=== PATIENT | male | born 1965 | race African-American/Black ===

== ENCOUNTER 2018-07-07 23:07 | Inpatient (IN) | payer BC ==
[~2018-07-07] VITALS: Ht 177.8 cm; Wt 132.0 kg
[~2018-07-07 23:07] MED LIST: AMLO2.5T45 PO; CARV6.2548 PO; METF500T6 PO; OLME40TA12 PO
[2018-07-08 00:38] LABS: BASOPHILS % 0.5 % (0.0-2.0); EOSINOPHILS % 0.9 % (0.0-5.0); HEMATOCRIT. 36.1 % (42.0-52.0); HEMOGLOBIN. 11.9 g/dL (14.0-18.0); LYMPHOCYTES % 12.3 % (20.0-50.0); MEAN CORPUSCULAR HEMOGLOBIN 28.9 pg (28.0-32.0); MEAN CORPUSCULAR VOLUME 87.6 fL (80.0-94.0); MONOCYTES % 8.3 % (2.0-8.0); PLATELET 311 x1000/uL (130-400); RED BLOOD CELL COUNT 4.12 mill/uL (4.7-6.1); RED CELL DISTRIBUTION WIDTH 13.9 % (11.6-14.6)
[2018-07-08 00:45] LABS: INR 1.1; PARTIAL THROMBOPLASTIN TIME 30.6 sec (23.4-31.0); PROTHROMBIN TIME 10.7 sec (9.1-11.1)
[2018-07-08 00:51] LABS: CHLORIDE 105 mEq/L (98-107)
[2018-07-08] MEDS ORDERED: FUROSEMIDE 100MG/10ML VIAL IVP ONE (02:00)
[2018-07-08] MEDS ORDERED: ASPIRIN 325MG EC TABLET PO ONE (02:00)
[2018-07-08 05:04] LABS: CLARITY URINE CLEAR (CLEAR); COLOR URINE YELLOW (YELLOW); KETONES URINE NEGATIVE (NEGATIVE); LEUKOCYTE ESTERASE URINE NEGATIVE (NEGATIVE); NITRITE URINE NEGATIVE (NEGATIVE); OCCULT BLOOD URINE NEGATIVE (NEGATIVE); PROTEIN URINE TRACE (NEGATIVE); SPECIFIC GRAVITY URINE 1.016 (1.005-1.030)
[2018-07-08 05:30] VITALS: BP 155/89
[2018-07-08] MEDS ORDERED: FURO-152 PO (06:06)
[2018-07-08] MEDS ORDERED: DEXTROSE 50% WATER 50ML SYRINGE IV PRN (06:30)
[2018-07-08] MEDS ORDERED: ACETAMINOPHEN 650MG/20.3ML UDC PO PRN (06:30)
[2018-07-08] MEDS ORDERED: MORPHINE SULFATE 4 MG/ML CPJ (NOT FOR IM USE) IV PRN (06:30)
[2018-07-08] MEDS: BLOOD SUGAR DIAGNOSTIC STRIP TEST SCH ×4 (06:45→21:16)
[2018-07-08 08:00] VITALS: BP 150/74
[2018-07-08] MEDS ORDERED: ENOXAPARIN 40MG/0.4ML SYR SUBCUT SCH (09:00)
[2018-07-08 09:37] LABS: BASOPHILS % 0.6 % (0.0-2.0); EOSINOPHILS % 1.3 % (0.0-5.0); HEMATOCRIT. 34.2 % (42.0-52.0); HEMOGLOBIN. 11.3 g/dL (14.0-18.0); LYMPHOCYTES % 16.6 % (20.0-50.0); MEAN CORPUSCULAR HEMOGLOBIN 29.1 pg (28.0-32.0); MEAN CORPUSCULAR VOLUME 87.8 fL (80.0-94.0); MEAN PLATELET VOLUME 8.8 fl (7.4-10.4); MONOCYTES % 8.3 % (2.0-8.0); NEUTROPHILS % 73.2 % (40.0-76.0); PLATELET 274 x1000/uL (130-400); RED CELL DISTRIBUTION WIDTH 13.8 % (11.6-14.6)
[2018-07-08] MEDS: POTASSIUM CHLORIDE 20MEQ TABLET SR PO SCH (09:46)
[2018-07-08] MEDS: METFORMIN HCL 500MG TABLET PO SCH ×2 (09:47→18:12)
[2018-07-08] MEDS: CARVEDILOL 6.25 MG TABLET PO SCH ×2 (09:47→21:18)
[2018-07-08] MEDS: LOSARTAN POTASSIUM 50 MG TABLET PO SCH (09:47)
[2018-07-08] MEDS: FUROSEMIDE 40MG/4ML VIAL IVP SCH ×2 (09:47→18:12)
[2018-07-08] MEDS: NITROGLYCERIN OINT 1GM/INCH UDPKT TD SCH ×3 (09:48→18:12)
[2018-07-08] MEDS: ENOXAPARIN 40MG/0.4ML SYR SUBCUT SCH (09:49)
[2018-07-08] MEDS: INSULIN LISPRO 100 UNITS/ML SUBCUT SCH ×4 (09:53→21:20)
[2018-07-08] MEDS: ASPIRIN 81MG EC TABLET PO SCH (09:54)
[2018-07-08 09:55] LABS: CHLORIDE 104 mEq/L (98-107)
[2018-07-08 12:00] VITALS: BP 136/69
[2018-07-08 16:00] VITALS: BP 145/83
[2018-07-08 20:00] VITALS: BP 158/87
[2018-07-08] MEDS ORDERED: ZOLPIDEM TARTRATE 5MG TABLET PO PRN (21:00)
[2018-07-09] VITALS: BP 129/80
[2018-07-09] MEDS: NITROGLYCERIN OINT 1GM/INCH UDPKT TD SCH ×2 (00:17→06:02)
[2018-07-09 04:00] VITALS: BP 135/73
[2018-07-09] MEDS: BLOOD SUGAR DIAGNOSTIC STRIP TEST SCH ×4 (05:59→21:26)
[2018-07-09] MEDS: INSULIN LISPRO 100 UNITS/ML SUBCUT SCH ×4 (06:05→21:32)
[2018-07-09 06:28] LABS: BASOPHILS % 0.6 % (0.0-2.0); EOSINOPHILS % 2.5 % (0.0-5.0); HEMATOCRIT. 32.6 % (42.0-52.0); HEMOGLOBIN. 10.9 g/dL (14.0-18.0); LYMPHOCYTES % 18.5 % (20.0-50.0); MEAN CORPUSCULAR HEMOGLOBIN 29.4 pg (28.0-32.0); MEAN CORPUSCULAR VOLUME 87.9 fL (80.0-94.0); MEAN PLATELET VOLUME 8.9 fl (7.4-10.4); MONOCYTES % 11.2 % (2.0-8.0); NEUTROPHILS % 67.2 % (40.0-76.0); PLATELET 270 x1000/uL (130-400); RED BLOOD CELL COUNT 3.71 mill/uL (4.7-6.1); RED CELL DISTRIBUTION WIDTH 13.9 % (11.6-14.6)
[2018-07-09 06:51] LABS: CHLORIDE 102 mEq/L (98-107)
[2018-07-09 08:52] VITALS: BP 158/89
[2018-07-09] MEDS: FUROSEMIDE 40MG/4ML VIAL IVP SCH ×2 (08:54→18:02)
[2018-07-09] MEDS: POTASSIUM CHLORIDE 20MEQ TABLET SR PO SCH (08:55)
[2018-07-09] MEDS: CARVEDILOL 6.25 MG TABLET PO SCH ×2 (08:55→21:20)
[2018-07-09] MEDS: LOSARTAN POTASSIUM 50 MG TABLET PO SCH ×2 (08:55→18:02)
[2018-07-09] MEDS: METFORMIN HCL 500MG TABLET PO SCH ×2 (08:55→18:01)
[2018-07-09] MEDS: ASPIRIN 81MG EC TABLET PO SCH (08:55)
[2018-07-09] MEDS: ENOXAPARIN 40MG/0.4ML SYR SUBCUT SCH (08:56)
[2018-07-09 12:00] VITALS: BP 144/77
[2018-07-09 16:00] VITALS: BP 172/95
[2018-07-09 20:00] VITALS: BP 154/97
[2018-07-09] MEDS: AMLODIPINE 5MG TABLET PO SCH (21:20)
[2018-07-10] VITALS: BP 145/83
[2018-07-10 04:00] VITALS: BP 126/74
[2018-07-10 06:27] LABS: CHLORIDE 101 mEq/L (98-107)
[2018-07-10 06:32] LABS: BASOPHILS % 0.7 % (0.0-2.0); EOSINOPHILS % 2.4 % (0.0-5.0); HEMATOCRIT. 31.1 % (42.0-52.0); HEMOGLOBIN. 10.6 g/dL (14.0-18.0); MEAN CORPUSCULAR HEMOGLOBIN 29.7 pg (28.0-32.0); MEAN CORPUSCULAR VOLUME 87.4 fL (80.0-94.0); MEAN PLATELET VOLUME 9.1 fl (7.4-10.4); MONOCYTES % 11.2 % (2.0-8.0); NEUTROPHILS % 64.7 % (40.0-76.0); PLATELET 251 x1000/uL (130-400); RED BLOOD CELL COUNT 3.56 mill/uL (4.7-6.1); RED CELL DISTRIBUTION WIDTH 13.7 % (11.6-14.6)
[2018-07-10] MEDS: BLOOD SUGAR DIAGNOSTIC STRIP TEST SCH ×2 (06:32→12:00)
[2018-07-10] MEDS: METFORMIN HCL 500MG TABLET PO SCH (06:33)
[2018-07-10] MEDS: INSULIN LISPRO 100 UNITS/ML SUBCUT SCH ×2 (06:33→12:55)
[2018-07-10] MEDS: FUROSEMIDE 40MG/4ML VIAL IVP SCH (06:33)
[2018-07-10 08:28] VITALS: BP 178/97
[2018-07-10] MEDS: ASPIRIN 81MG EC TABLET PO SCH (08:57)
[2018-07-10] MEDS: CARVEDILOL 6.25 MG TABLET PO SCH (08:57)
[2018-07-10] MEDS: ENOXAPARIN 40MG/0.4ML SYR SUBCUT SCH (08:57)
[2018-07-10] MEDS: LOSARTAN POTASSIUM 50 MG TABLET PO SCH (08:57)
[2018-07-10] MEDS: AMLODIPINE 5MG TABLET PO SCH (08:57)
[2018-07-10] MEDS: POTASSIUM CHLORIDE 20MEQ TABLET SR PO SCH (09:00)
[2018-07-10 12:00] VITALS: BP 145/90
[2018-07-10 14:25] VITALS: BP 145/90
== END 2018-07-10 15:15 | disposition home or self-care (01) | DRG 292 ==
LOC: ER 23:07 → 5WST 07-08 02:12 → EDBEDREQ 07-08 02:16 → EDBEDREQTM 07-08 02:16 → ENRESERV 07-08 04:07
PROVIDERS: ADMIT Specialist; ATTEND Specialist
DX: I11.0 Hypertensive heart disease with heart failure (principal); Z68.41 Body mass index [BMI] 40.0-44.9, adult; N43.3 Hydrocele, unspecified; I50.23 Acute on chronic systolic (congestive) heart failure; I42.0 Dilated cardiomyopathy; E11.9 Type 2 diabetes mellitus without complications; E66.09 Other obesity due to excess calories; N50.89 Other specified disorders of the male genital organs; R74.8 Abnormal levels of other serum enzymes; Z79.899 Other long term (current) drug therapy; Z79.84 Long term (current) use of oral hypoglycemic drugs
CPT/HCPCS: 36415; 71045; 76870; 80048; 80053; 81003; 82962; 83605; 83880; 84484; 85025; 85610; 85730; 87040; 87086; 93005; 93306; 93970; 93976; 96374; 99285; J1650; J1815; J1940

== ENCOUNTER 2018-08-23 08:03 | Inpatient (IN) | payer BC ==
[2018-08-23] VITALS (13 sets, daily range): BP systolic 125–160; BP diastolic 72–94
[~2018-08-23] VITALS: Ht 177.8 cm; Wt 113.4 kg
[~2018-08-23 08:03] MED LIST changes: +FURO-152 PO; +METF-414 PO; -METF500T6 PO; +OLME40TA11 PO; -OLME40TA12 PO
[2018-08-23] MEDS ORDERED: LIDOCAINE HCL 1% 20ML VIAL (Pyxis) INJ ONE (10:20)
[2018-08-23] MEDS ORDERED: IODIXANOL 320MG/ML 100 ML BOTTLE IV ONE ×2 (10:20→11:43)
[2018-08-23] MEDS ORDERED: FENTANYL CITRATE/PF 50MCG/ML 2ML VIAL ONE (10:40)
[2018-08-23] MEDS ORDERED: MIDAZOLAM HCL 2 MG/2 ML VIAL ONE (10:40)
[2018-08-23] MEDS ORDERED: ASPIRIN/SOD BICARB/CITRIC ACID 324MG TAB EFF ONE (10:52)
[2018-08-23] MEDS ORDERED: IOHEXOL-300 100 ML BOTTLE ONE (11:13)
[2018-08-23] MEDS ORDERED: HEPARIN SODIUM 1,000 UNIT/1ML VIAL IV ONE ×3 (11:19→14:05)
[2018-08-23] MEDS ORDERED: CLOPIDOGREL 75MG TABLET ONE (11:22)
[2018-08-23] MEDS ORDERED: ACETAMINOPHEN 325MG TABLET PO PRN (12:00)
[2018-08-23] MEDS ORDERED: MORPHINE SULFATE 4 MG/ML CPJ (NOT FOR IM USE) IV PRN (12:00)
[2018-08-23] MEDS ORDERED: CLOPIDOGREL 75MG TABLET PO SCH (12:00)
[2018-08-23] MEDS ORDERED: ATROPINE SULFATE 1MG/10ML SYR IV PRN (12:00)
[2018-08-23] MEDS ORDERED: ONDANSETRON HCL 4MG/2ML INJ IV PRN (12:00)
[2018-08-23] MEDS ORDERED: DEXTROSE 50% WATER 50ML SYRINGE IV PRN (12:00)
[2018-08-23] MEDS ORDERED: SODIUM CHLORIDE 0.45% 1,000 ML IV ONE (12:00)
[2018-08-23] MEDS: CARVEDILOL 6.25 MG TABLET PO SCH ×2 (13:30→21:43)
[2018-08-23] MEDS: ASPIRIN 325MG TABLET PO SCH (13:30)
[2018-08-23] MEDS: LOSARTAN POTASSIUM 50 MG TABLET PO SCH ×2 (13:30→21:18)
[2018-08-23] MEDS: BLOOD SUGAR DIAGNOSTIC STRIP TEST SCH ×3 (13:39→21:21)
[2018-08-23] MEDS: INSULIN LISPRO 100 UNITS/ML SUBCUT SCH ×3 (14:03→21:42)
[2018-08-23] MEDS ORDERED: NITROGLYCERIN 50MCG/ML 10ML VIAL (CATH LAB) IV ONE (14:05)
[2018-08-23] MEDS ORDERED: NICARDIPINE 100MCG/ML 10ML VIAL (CATH LAB) IV ONE (14:05)
[2018-08-23] MEDS: SPIRONOLACTONE 25MG TABLET PO SCH ×2 (14:38→21:20)
[2018-08-23] MEDS: FUROSEMIDE 20MG TABLET PO SCH (14:38)
[2018-08-24] VITALS (8 sets, daily range): BP systolic 114–158; BP diastolic 71–90
[2018-08-24] MEDS: INSULIN LISPRO 100 UNITS/ML SUBCUT SCH ×2 (05:41→07:57)
[2018-08-24 06:55] LABS: BASOPHILS % 0.5 % (0.0-2.0); HEMATOCRIT. 36.7 % (42.0-52.0); HEMOGLOBIN. 12.4 g/dL (14.0-18.0); LYMPHOCYTES % 21.5 % (20.0-50.0); MEAN CORPUSCULAR HEMOGLOBIN 28.6 pg (28.0-32.0); MEAN CORPUSCULAR VOLUME 84.9 fL (80.0-94.0); MEAN PLATELET VOLUME 8.6 fl (7.4-10.4); MONOCYTES % 8.4 % (2.0-8.0); NEUTROPHILS % 67.6 % (40.0-76.0); PLATELET 263 x1000/uL (130-400); RED BLOOD CELL COUNT 4.32 mill/uL (4.7-6.1); RED CELL DISTRIBUTION WIDTH 14.9 % (11.6-14.6)
[2018-08-24 06:56] LABS: CHLORIDE 106 mEq/L (98-107)
[2018-08-24] MEDS: BLOOD SUGAR DIAGNOSTIC STRIP TEST SCH (07:50)
[2018-08-24] MEDS: ASPIRIN 325MG TABLET PO SCH (08:04)
[2018-08-24] MEDS: CARVEDILOL 6.25 MG TABLET PO SCH (08:06)
[2018-08-24] MEDS: LOSARTAN POTASSIUM 50 MG TABLET PO SCH (08:06)
[2018-08-24] MEDS: FUROSEMIDE 20MG TABLET PO SCH (08:06)
[2018-08-24] MEDS: SPIRONOLACTONE 25MG TABLET PO SCH (08:20)
[2018-08-24] MEDS ORDERED: CLOPIDOGREL 75MG TABLET PO SCH (09:00)
[2018-08-24] MEDS ORDERED: ATORVASTATIN CALCIUM 40MG TABLET PO SCH (21:00)
== END 2018-08-24 11:38 | disposition home or self-care (01) | DRG 247 ==
LOC: CCL 08:03 → 3WST 12:55
PROVIDERS: ADMIT Specialist; ATTEND Specialist
PROC: 027135Z Dilation of Coronary Artery, Two Arteries with Two Drug-eluting Intraluminal Devices, Percutaneous Approach (ICD-10-PCS; principal; 2018-08-23)
PROC: B2111ZZ Fluoroscopy of Multiple Coronary Arteries using Low Osmolar Contrast (ICD-10-PCS; 2018-08-23)
PROC: 4A023N7 Measurement of Cardiac Sampling and Pressure, Left Heart, Percutaneous Approach (ICD-10-PCS; 2018-08-23)
DX: I25.10 Atherosclerotic heart disease of native coronary artery without angina pectoris (principal); I25.82 Chronic total occlusion of coronary artery; E11.9 Type 2 diabetes mellitus without complications; I11.0 Hypertensive heart disease with heart failure; I50.9 Heart failure, unspecified; I42.9 Cardiomyopathy, unspecified
CPT/HCPCS: 36415; 80048; 82962; 92928; 92929; 93005; 93458; C1769; C1874; C1887; C1893; J1644; J1815; J2250; J3010; J3490; Q9967

== ENCOUNTER 2018-12-06 10:09 | Day surgery (SDC) | payer BC ==
[~2018-12-06] VITALS: Ht 177.8 cm; Wt 122.5 kg
[2018-12-06] MEDS ORDERED: ASPI-1158 MT (10:54)
[2018-12-06] MEDS ORDERED: SITA50TA3 MT (10:54)
[2018-12-06] MEDS ORDERED: CLOP75TA16 MT (10:54)
[2018-12-06] MEDS ORDERED: COR25 PO (10:54)
[2018-12-06 11:15] LABS: HEMATOCRIT 33.9 % (42.0-52.0); HEMOGLOBIN 11.3 g/dL (14.0-18.0); MEAN CORPUSCULAR HEMOGLOBIN 29.4 pg (28.0-32.0); MEAN CORPUSCULAR VOLUME 88.3 fL (80.0-94.0); PLATELET 261 x1000/uL (130-400); RED BLOOD CELL COUNT 3.84 mill/uL (4.7-6.1); RED CELL DISTRIBUTION WIDTH 14.7 % (11.6-14.6)
[2018-12-06] MEDS ORDERED: LIDOCAINE HCL 1% 20ML VIAL (Pyxis) INJ ONE (11:30)
[2018-12-06] MEDS ORDERED: IODIXANOL 320MG/ML 100 ML BOTTLE IV ONE (11:49)
[2018-12-06] MEDS ORDERED: ASPIRIN/SOD BICARB/CITRIC ACID 324MG TAB EFF ONE (11:51)
[2018-12-06] MEDS ORDERED: MIDAZOLAM HCL 2 MG/2 ML VIAL ONE (12:19)
[2018-12-06] MEDS ORDERED: FENTANYL CITRATE/PF 50MCG/ML 2ML VIAL ONE (12:19)
[2018-12-06] MEDS ORDERED: ACETAMINOPHEN 325MG TABLET PO PRN (12:45)
[2018-12-06] MEDS ORDERED: MORPHINE SULFATE 4 MG/ML CPJ (NOT FOR IM USE) IV PRN (12:45)
[2018-12-06] MEDS ORDERED: ONDANSETRON HCL 4MG/2ML INJ IV PRN (12:45)
[2018-12-06] MEDS ORDERED: HEPARIN SODIUM 1,000 UNIT/1ML VIAL IV ONE (15:56)
[2018-12-06] MEDS ORDERED: NITROGLYCERIN 50MCG/ML 10ML VIAL (CATH LAB) IV ONE (15:56)
[2018-12-06] MEDS ORDERED: NICARDIPINE 100MCG/ML 10ML VIAL (CATH LAB) IV ONE (15:56)
== END 2018-12-06 16:10 | disposition home or self-care (01) ==
LOC: CCL 10:09
PROVIDERS: ATTEND Specialist
DX: I25.10 Atherosclerotic heart disease of native coronary artery without angina pectoris (principal); I12.9 Hypertensive chronic kidney disease with stage 1 through stage 4 chronic kidney disease, or unspecified chronic kidney disease; E11.22 Type 2 diabetes mellitus with diabetic chronic kidney disease; N18.9 Chronic kidney disease, unspecified; E78.00 Pure hypercholesterolemia, unspecified; I25.5 Ischemic cardiomyopathy; Z95.5 Presence of coronary angioplasty implant and graft
CPT/HCPCS: 36415; 82962; 85027; 93458; C1769; C1887; C1893; J1644; J2250; J3010; J3490; Q9967

== ENCOUNTER 2019-07-14 00:52 | Emergency (ER) | payer BC ==
[~2019-07-14] VITALS: Ht 177.8 cm; Wt 127.0 kg
[~2019-07-14 00:52] MED LIST changes: +ASPI-1158 MT; +CLOP75TA4 MT; +COR25 PO; +SITA50TA3 MT
[2019-07-14 02:50] VITALS: BP 154/72
== END 2019-07-14 02:53 | disposition home or self-care (01) ==
LOC: ER 00:52
DX: H60.8X3 Other otitis externa, bilateral (principal); E11.9 Type 2 diabetes mellitus without complications; I10 Essential (primary) hypertension; Z98.890 Other specified postprocedural states; Z79.82 Long term (current) use of aspirin; Z79.899 Other long term (current) drug therapy
CPT/HCPCS: 99282; 99283

== ENCOUNTER 2019-07-28 13:27 | Inpatient (IN) | payer BC ==
[~2019-07-28] VITALS: Ht 177.8 cm; Wt 122.0 kg
[2019-07-28] MEDS ORDERED: CLINDAMYCIN 600 MG in DEXTROSE 5% WATER 50 ML IV ONE (14:45)
[2019-07-28] MEDS ORDERED: CLINDAMYCIN 600MG PREMIX 50 ML IV SCH (15:15)
[2019-07-28 15:33] LABS: HEMOGLOBIN. 10.9 g/dL (14.0-18.0); MEAN CORPUSCULAR HEMOGLOBIN 28.4 pg (28.0-32.0); MEAN PLATELET VOLUME 7.9 fl (7.4-10.4); PLATELET 430 x1000/uL (130-400); RED BLOOD CELL COUNT 3.84 mill/uL (4.7-6.1); RED CELL DISTRIBUTION WIDTH 13.7 % (11.6-14.6)
[2019-07-28 15:35] LABS: CHLORIDE 103 mEq/L (98-107)
[2019-07-28 17:25] LABS: PLATELET ESTIMATE INCREASED
[2019-07-28] MEDS ORDERED: AMLODIPINE 10MG TABLET PO ONE (19:45)
[2019-07-28 21:55] VITALS: BP 150/78
[2019-07-28] MEDS ORDERED: METF-416 MT (21:59)
[2019-07-28] MEDS ORDERED: AMLO5TAB88 MT (21:59)
[2019-07-28] MEDS ORDERED: FURO20TA4 MT (21:59)
[2019-07-28] MEDS ORDERED: OLME20TA22 MT (22:00)
[2019-07-28] MEDS ORDERED: ASPI-1393 MT (22:01)
[2019-07-28] MEDS ORDERED: CLOP75TA4 MT (22:01)
[2019-07-28] MEDS ORDERED: POTA-79 MT (22:02)
[2019-07-28] MEDS ORDERED: DEXTROSE 50% WATER 50ML SYRINGE IV PRN (23:45)
[2019-07-28] MEDS ORDERED: CLONIDINE 0.1MG TABLET PO PRN (23:45)
[2019-07-28] MEDS ORDERED: HYDROCODONE/ACETAMINOPHEN 5/325MG TABLET PO PRN (23:45)
[2019-07-29] VITALS: BP 142/73
[2019-07-29] MEDS: PIPERACILLIN/TAZOBACTAM 3.375 G in DEXT 5% WATER 100 ML IV SCH ×3 (01:51→16:52)
[2019-07-29] MEDS ORDERED: VANCOMYCIN 1,750 MG in DEXT 5% WATER 500 ML IV SCH (02:00)
[2019-07-29] MEDS: INSULIN GLARGINE UD 100 UNITS/ML SYR SUBCUT SCH ×2 (02:09→22:22)
[2019-07-29 04:00] VITALS: BP 128/65
[2019-07-29] MEDS ORDERED: PIPERACILLIN/TAZOBACTAM 2.25 G in DEXTROSE 5% WATER 50 ML IV SCH (06:00)
[2019-07-29] MEDS: INSULIN LISPRO 100 UNITS/ML SUBCUT SCH ×4 (06:37→22:21)
[2019-07-29] MEDS: BLOOD SUGAR DIAGNOSTIC STRIP TEST SCH ×4 (06:38→20:41)
[2019-07-29 07:28] LABS: HEMATOCRIT 28.6 % (42.0-52.0); HEMOGLOBIN 9.5 g/dL (14.0-18.0); MEAN CORPUSCULAR HEMOGLOBIN 28.6 pg (28.0-32.0); MEAN CORPUSCULAR VOLUME 85.7 fL (80.0-94.0); PLATELET 379 x1000/uL (130-400); RED BLOOD CELL COUNT 3.34 mill/uL (4.7-6.1); RED CELL DISTRIBUTION WIDTH 14.1 % (11.6-14.6)
[2019-07-29 07:37] LABS: CHLORIDE 104 mEq/L (98-107)
[2019-07-29 08:00] VITALS: BP 152/83
[2019-07-29] MEDS ORDERED: AMLODIPINE 5MG TABLET PO SCH (09:00)
[2019-07-29] MEDS ORDERED: MEDICATION NOT ON FORMULARY EA (Olmesartan Medoxomil 1 TAB) MT SCH (09:00)
[2019-07-29] MEDS ORDERED: CLOPIDOGREL 75MG TABLET PO SCH (09:00)
[2019-07-29] MEDS ORDERED: MEDICATION NOT ON FORMULARY EA (Potassium Chloride 1 TAB) MT SCH (09:00)
[2019-07-29] MEDS: FUROSEMIDE 20MG TABLET PO SCH ×2 (09:01→22:06)
[2019-07-29] MEDS: LOSARTAN POTASSIUM 100 MG TABLET PO SCH (09:01)
[2019-07-29] MEDS: POTASSIUM CHLORIDE 20MEQ TABLET SR PO SCH (09:01)
[2019-07-29] MEDS: ASPIRIN 81MG EC TABLET PO SCH ×2 (09:01→16:52)
[2019-07-29] MEDS: CLOPIDOGREL 75MG TABLET PO SCH (09:02)
[2019-07-29 12:00] VITALS: BP 142/71
[2019-07-29] MEDS: AMLODIPINE 5MG TABLET PO SCH ×2 (12:02→22:06)
[2019-07-29] MEDS: ENOXAPARIN 30MG/0.3ML SYR SUBCUT SCH ×2 (12:02→22:07)
[2019-07-29] MEDS ORDERED: VANCOMYCIN 1250MG in DEXTROSE 5% WATER 250ML IV SCH (14:00)
[2019-07-29] MEDS: VANCOMYCIN 1500MG in DEXTROSE 5% WATER 250ML IV SCH (15:24)
[2019-07-29] MEDS ORDERED: IOHEXOL-350 100 ML BOTTLE ONE (15:24)
[2019-07-29 16:00] VITALS: BP 140/73
[2019-07-29 20:00] VITALS: BP 149/82
[2019-07-29] MEDS ORDERED: INSULIN GLARGINE UD 100 UNITS/ML SYR SUBCUT SCH (22:00)
[2019-07-29 23:21] LABS: CLARITY URINE CLEAR (CLEAR); COLOR URINE YELLOW (YELLOW); KETONES URINE NEGATIVE (NEGATIVE); LEUKOCYTE ESTERASE URINE NEGATIVE (NEGATIVE); NITRITE URINE NEGATIVE (NEGATIVE); OCCULT BLOOD URINE NEGATIVE (NEGATIVE); PROTEIN URINE TRACE (NEGATIVE); SPECIFIC GRAVITY URINE 1.058 (1.005-1.030)
[2019-07-30] VITALS: BP 143/87
[2019-07-30] MEDS: PIPERACILLIN/TAZOBACTAM 3.375 G in DEXT 5% WATER 100 ML IV SCH ×3 (01:05→17:59)
[2019-07-30] MEDS: VANCOMYCIN 1500MG in DEXTROSE 5% WATER 250ML IV SCH ×2 (02:44→14:34)
[2019-07-30 04:00] VITALS: BP 147/98
[2019-07-30] MEDS: BLOOD SUGAR DIAGNOSTIC STRIP TEST SCH ×4 (06:47→20:20)
[2019-07-30] MEDS: INSULIN LISPRO 100 UNITS/ML SUBCUT SCH ×4 (06:47→21:35)
[2019-07-30 07:50] LABS: BASOPHILS % 0.5 % (0.0-2.0); EOSINOPHILS % 1.5 % (0.0-5.0); HEMATOCRIT. 30.5 % (42.0-52.0); HEMOGLOBIN. 9.9 g/dL (14.0-18.0); LYMPHOCYTES % 10.5 % (20.0-50.0); MEAN CORPUSCULAR HEMOGLOBIN 27.8 pg (28.0-32.0); MEAN CORPUSCULAR VOLUME 85.4 fL (80.0-94.0); MEAN PLATELET VOLUME 7.9 fl (7.4-10.4); MONOCYTES % 6.5 % (2.0-8.0); PLATELET 396 x1000/uL (130-400); RED BLOOD CELL COUNT 3.57 mill/uL (4.7-6.1); RED CELL DISTRIBUTION WIDTH 13.7 % (11.6-14.6)
[2019-07-30 08:00] VITALS: BP 140/78
[2019-07-30] MEDS: ENOXAPARIN 30MG/0.3ML SYR SUBCUT SCH (08:32)
[2019-07-30] MEDS: FUROSEMIDE 20MG TABLET PO SCH ×2 (08:33→21:24)
[2019-07-30] MEDS: CLOPIDOGREL 75MG TABLET PO SCH (08:33)
[2019-07-30] MEDS: ASPIRIN 81MG EC TABLET PO SCH ×2 (08:33→17:59)
[2019-07-30] MEDS: POTASSIUM CHLORIDE 20MEQ TABLET SR PO SCH (08:33)
[2019-07-30] MEDS: LOSARTAN POTASSIUM 100 MG TABLET PO SCH (08:33)
[2019-07-30] MEDS: AMLODIPINE 5MG TABLET PO SCH ×2 (08:33→21:25)
[2019-07-30 08:34] LABS: CHLORIDE 105 mEq/L (98-107)
[2019-07-30 08:46] LABS: LDL CHOLESTEROL 105 mg/dL (5-100)
[2019-07-30 08:48] LABS: HDL CHOLESTEROL 29 mg/dL (40-59)
[2019-07-30 12:00] VITALS: BP 126/71
[2019-07-30 16:00] VITALS: BP 136/65
[2019-07-30 20:00] VITALS: BP 132/68
[2019-07-30] MEDS: ENOXAPARIN 40MG/0.4ML SYR SUBCUT SCH (21:25)
[2019-07-30] MEDS ORDERED: ACETAMINOPHEN 325MG TABLET PO PRN (21:45)
[2019-07-30] MEDS: INSULIN GLARGINE UD 100 UNITS/ML SYR SUBCUT SCH (22:41)
[2019-07-31] VITALS: BP 128/68
[2019-07-31] MEDS: PIPERACILLIN/TAZOBACTAM 3.375 G in DEXT 5% WATER 100 ML IV SCH ×3 (00:35→16:48)
[2019-07-31] MEDS: VANCOMYCIN 1500MG in DEXTROSE 5% WATER 250ML IV SCH ×2 (02:32→16:07)
[2019-07-31 04:00] VITALS: BP 134/77
[2019-07-31] MEDS: BLOOD SUGAR DIAGNOSTIC STRIP TEST SCH ×4 (06:19→21:00)
[2019-07-31] MEDS: INSULIN LISPRO 100 UNITS/ML SUBCUT SCH ×5 (06:19→22:15)
[2019-07-31 07:35] LABS: BASOPHILS % 0.3 % (0.0-2.0); EOSINOPHILS % 1.5 % (0.0-5.0); HEMATOCRIT. 34.1 % (42.0-52.0); LYMPHOCYTES % 10.2 % (20.0-50.0); MEAN CORPUSCULAR HEMOGLOBIN 28.2 pg (28.0-32.0); MEAN CORPUSCULAR VOLUME 87.1 fL (80.0-94.0); MEAN PLATELET VOLUME 8.1 fl (7.4-10.4); MONOCYTES % 5.9 % (2.0-8.0); NEUTROPHILS % 82.1 % (40.0-76.0); PLATELET 424 x1000/uL (130-400); RED BLOOD CELL COUNT 3.92 mill/uL (4.7-6.1); RED CELL DISTRIBUTION WIDTH 13.9 % (11.6-14.6)
[2019-07-31 07:54] LABS: CHLORIDE 106 mEq/L (98-107)
[2019-07-31 08:00] VITALS: BP 134/64
[2019-07-31] MEDS: LOSARTAN POTASSIUM 100 MG TABLET PO SCH (09:57)
[2019-07-31] MEDS: FUROSEMIDE 20MG TABLET PO SCH ×2 (09:57→21:50)
[2019-07-31] MEDS: POTASSIUM CHLORIDE 20MEQ TABLET SR PO SCH (09:57)
[2019-07-31] MEDS: ASPIRIN 81MG EC TABLET PO SCH ×2 (09:57→16:46)
[2019-07-31] MEDS: CLOPIDOGREL 75MG TABLET PO SCH (09:57)
[2019-07-31] MEDS: AMLODIPINE 5MG TABLET PO SCH ×2 (09:58→21:51)
[2019-07-31] MEDS: ENOXAPARIN 40MG/0.4ML SYR SUBCUT SCH ×2 (09:59→21:51)
[2019-07-31 12:00] VITALS: BP 112/76
[2019-07-31] MEDS ORDERED: TETANUS, DIPHTHERIA, PERTUSSIS VAC/PF 0.5ML (>7YR OLD) IM ONE (15:30)
[2019-07-31 16:00] VITALS: BP 134/66
[2019-07-31 20:00] VITALS: BP 138/74
[2019-07-31] MEDS: INSULIN GLARGINE UD 100 UNITS/ML SYR SUBCUT SCH (21:59)
[2019-08-01] VITALS (7 sets, daily range): BP systolic 109–153; BP diastolic 68–87
[2019-08-01] MEDS: VANCOMYCIN 1500MG in DEXTROSE 5% WATER 250ML IV SCH (03:16)
[2019-08-01] MEDS: PIPERACILLIN/TAZOBACTAM 3.375 G in DEXT 5% WATER 100 ML IV SCH ×2 (03:16→09:00)
[2019-08-01] MEDS: BLOOD SUGAR DIAGNOSTIC STRIP TEST SCH ×4 (06:43→21:00)
[2019-08-01] MEDS: INSULIN LISPRO 100 UNITS/ML SUBCUT SCH ×4 (06:43→21:23)
[2019-08-01 07:41] LABS: CHLORIDE 106 mEq/L (98-107)
[2019-08-01 07:52] LABS: BASOPHILS % 0.7 % (0.0-2.0); EOSINOPHILS % 1.2 % (0.0-5.0); HEMATOCRIT. 30.7 % (42.0-52.0); HEMOGLOBIN. 10.3 g/dL (14.0-18.0); LYMPHOCYTES % 9.8 % (20.0-50.0); MEAN CORPUSCULAR HEMOGLOBIN 28.5 pg (28.0-32.0); MEAN CORPUSCULAR VOLUME 85.3 fL (80.0-94.0); MEAN PLATELET VOLUME 7.8 fl (7.4-10.4); MONOCYTES % 6.9 % (2.0-8.0); NEUTROPHILS % 81.4 % (40.0-76.0); PLATELET 420 x1000/uL (130-400); RED CELL DISTRIBUTION WIDTH 13.3 % (11.6-14.6)
[2019-08-01] MEDS: LOSARTAN POTASSIUM 100 MG TABLET PO SCH (08:58)
[2019-08-01] MEDS: CLOPIDOGREL 75MG TABLET PO SCH (08:58)
[2019-08-01] MEDS: AMLODIPINE 5MG TABLET PO SCH ×2 (08:59→21:06)
[2019-08-01] MEDS: FUROSEMIDE 20MG TABLET PO SCH ×2 (08:59→21:05)
[2019-08-01] MEDS: ASPIRIN 81MG EC TABLET PO SCH ×2 (08:59→17:45)
[2019-08-01] MEDS: POTASSIUM CHLORIDE 20MEQ TABLET SR PO SCH (08:59)
[2019-08-01] MEDS ORDERED: HEPARIN SODIUM 1,000 UNIT/1ML VIAL IV ONE ×2 (10:21→13:52)
[2019-08-01] MEDS ORDERED: MIDAZOLAM HCL 2 MG/2 ML VIAL ONE (12:49)
[2019-08-01] MEDS ORDERED: LIDOCAINE HCL 1% 20ML VIAL (Pyxis) INJ ONE (12:50)
[2019-08-01] MEDS ORDERED: FENTANYL CITRATE/PF 50MCG/ML 2ML VIAL ONE ×2 (12:50→15:01)
[2019-08-01] MEDS ORDERED: IODIXANOL 320MG/ML 100 ML BOTTLE IV ONE (12:50)
[2019-08-01] MEDS ORDERED: ASPIRIN/SOD BICARB/CITRIC ACID 324MG TAB EFF ONE (13:01)
[2019-08-01] MEDS ORDERED: IOHEXOL-300 100 ML BOTTLE ONE (13:57)
[2019-08-01] MEDS ORDERED: CEFTRIAXONE 2 G PREMIX 50 ML IV SCH (14:30)
[2019-08-01] MEDS ORDERED: CLOPIDOGREL 75MG TABLET ONE (15:09)
[2019-08-01] MEDS ORDERED: ATROPINE SULFATE 1MG/10ML SYR IV PRN (15:15)
[2019-08-01] MEDS ORDERED: ACETAMINOPHEN 325MG TABLET PO PRN (15:15)
[2019-08-01] MEDS ORDERED: SODIUM CHLORIDE 0.45% 1,000 ML IV ONE (15:15)
[2019-08-01] MEDS ORDERED: ONDANSETRON HCL 4MG/2ML INJ IV PRN (15:15)
[2019-08-01] MEDS ORDERED: MORPHINE SULFATE 2 MG/ML CPJ (NOT FOR IM USE) IV PRN (15:15)
[2019-08-01] MEDS ORDERED: CLOPIDOGREL 75MG TABLET PO ONE (15:15)
[2019-08-01] MEDS: CEFTRIAXONE 2 G in DEXTROSE 5% WATER 50 ML IV SCH (17:45)
[2019-08-01] MEDS: METRONIDAZOLE 500MG TABLET PO SCH (21:05)
[2019-08-01] MEDS: INSULIN GLARGINE UD 100 UNITS/ML SYR SUBCUT SCH (21:33)
[2019-08-02] VITALS (9 sets, daily range): BP systolic 129–155; BP diastolic 67–82
[2019-08-02 06:41] LABS: CHLORIDE 106 mEq/L (98-107)
[2019-08-02] MEDS: BLOOD SUGAR DIAGNOSTIC STRIP TEST SCH ×4 (06:50→21:42)
[2019-08-02 07:18] LABS: BASOPHILS % 0.6 % (0.0-2.0); EOSINOPHILS % 1.7 % (0.0-5.0); HEMATOCRIT. 30.9 % (42.0-52.0); HEMOGLOBIN. 10.3 g/dL (14.0-18.0); LYMPHOCYTES % 10.4 % (20.0-50.0); MEAN CORPUSCULAR HEMOGLOBIN 28.2 pg (28.0-32.0); MEAN CORPUSCULAR VOLUME 84.9 fL (80.0-94.0); MEAN PLATELET VOLUME 7.8 fl (7.4-10.4); MONOCYTES % 6.8 % (2.0-8.0); NEUTROPHILS % 80.5 % (40.0-76.0); PLATELET 424 x1000/uL (130-400); RED BLOOD CELL COUNT 3.64 mill/uL (4.7-6.1); RED CELL DISTRIBUTION WIDTH 13.4 % (11.6-14.6)
[2019-08-02] MEDS: INSULIN LISPRO 100 UNITS/ML SUBCUT SCH ×4 (07:20→21:51)
[2019-08-02] MEDS: METRONIDAZOLE 500MG TABLET PO SCH ×2 (08:19→21:43)
[2019-08-02] MEDS: POTASSIUM CHLORIDE 20MEQ TABLET SR PO SCH (08:19)
[2019-08-02] MEDS: ASPIRIN 81MG EC TABLET PO SCH ×2 (08:19→17:14)
[2019-08-02] MEDS: FUROSEMIDE 20MG TABLET PO SCH ×2 (08:19→21:44)
[2019-08-02] MEDS: LOSARTAN POTASSIUM 100 MG TABLET PO SCH (08:19)
[2019-08-02] MEDS: AMLODIPINE 5MG TABLET PO SCH ×2 (08:24→21:48)
[2019-08-02] MEDS: ENOXAPARIN 40MG/0.4ML SYR SUBCUT SCH (09:00)
[2019-08-02] MEDS: CLOPIDOGREL 75MG TABLET PO SCH (10:21)
[2019-08-02] MEDS ORDERED: LIDOCAINE HCL 1% 20ML VIAL (Pyxis) INJ ONE ×2 (12:58→14:17)
[2019-08-02] MEDS ORDERED: SODIUM BICARBONATE 4% (2.4MEQ) 5ML VIAL IV ONE (14:17)
[2019-08-02] MEDS: CEFTRIAXONE 2 G in DEXTROSE 5% WATER 50 ML IV SCH (15:51)
[2019-08-02] MEDS: INSULIN GLARGINE UD 100 UNITS/ML SYR SUBCUT SCH (21:46)
[2019-08-03] VITALS (7 sets, daily range): BP systolic 110–147; BP diastolic 66–78
[2019-08-03] MEDS: BLOOD SUGAR DIAGNOSTIC STRIP TEST SCH ×3 (06:57→17:04)
[2019-08-03 07:07] LABS: CHLORIDE 106 mEq/L (98-107)
[2019-08-03 07:09] LABS: BASOPHILS % 0.8 % (0.0-2.0); EOSINOPHILS % 2.6 % (0.0-5.0); HEMATOCRIT. 31.6 % (42.0-52.0); HEMOGLOBIN. 10.8 g/dL (14.0-18.0); MEAN CORPUSCULAR HEMOGLOBIN 29.1 pg (28.0-32.0); MEAN CORPUSCULAR VOLUME 85.1 fL (80.0-94.0); MEAN PLATELET VOLUME 7.8 fl (7.4-10.4); MONOCYTES % 7.7 % (2.0-8.0); NEUTROPHILS % 76.9 % (40.0-76.0); PLATELET 423 x1000/uL (130-400); RED BLOOD CELL COUNT 3.71 mill/uL (4.7-6.1); RED CELL DISTRIBUTION WIDTH 13.7 % (11.6-14.6)
[2019-08-03] MEDS: INSULIN LISPRO 100 UNITS/ML SUBCUT SCH ×3 (07:20→17:27)
[2019-08-03] MEDS: POTASSIUM CHLORIDE 20MEQ TABLET SR PO SCH (08:12)
[2019-08-03] MEDS: METRONIDAZOLE 500MG TABLET PO SCH (08:12)
[2019-08-03] MEDS: ENOXAPARIN 40MG/0.4ML SYR SUBCUT SCH (08:12)
[2019-08-03] MEDS: ASPIRIN 81MG EC TABLET PO SCH ×2 (08:12→17:28)
[2019-08-03] MEDS: FUROSEMIDE 20MG TABLET PO SCH (08:12)
[2019-08-03] MEDS: CLOPIDOGREL 75MG TABLET PO SCH (08:13)
[2019-08-03] MEDS: LOSARTAN POTASSIUM 100 MG TABLET PO SCH (08:13)
[2019-08-03] MEDS: AMLODIPINE 5MG TABLET PO SCH (08:17)
[2019-08-03 12:13] LABS: TOTAL IRON BINDING CAPACITY 210 ug/dL (250-450)
[2019-08-03 12:46] LABS: VITAMIN B12 SERUM 538 pg/mL (211-911)
[2019-08-03] MEDS: CEFTRIAXONE 2 G in DEXTROSE 5% WATER 50 ML IV SCH (14:42)
== END 2019-08-03 18:30 | disposition home health service (06) | DRG 247 ==
LOC: ER 13:27 → EDBEDREQ 18:31 → ENRESERV 21:04 → 8WST 21:50 → 3WST 08-01 16:00
PROVIDERS: ADMIT Internal Medicine; ATTEND Internal Medicine
PROC: 027034Z Dilation of Coronary Artery, One Artery with Drug-eluting Intraluminal Device, Percutaneous Approach (ICD-10-PCS; principal; 2019-08-01)
PROC: 0LBV0ZZ Excision of Right Foot Tendon, Open Approach (ICD-10-PCS; 2019-08-01)
PROC: 02HV33Z Insertion of Infusion Device into Superior Vena Cava, Percutaneous Approach (ICD-10-PCS; 2019-08-02)
PROC: B548ZZA Ultrasonography of Superior Vena Cava, Guidance (ICD-10-PCS; 2019-08-02)
PROC: B5181ZA Fluoroscopy of Superior Vena Cava using Low Osmolar Contrast, Guidance (ICD-10-PCS; 2019-08-02)
DX: E11.51 Type 2 diabetes mellitus with diabetic peripheral angiopathy without gangrene (principal); I70.92 Chronic total occlusion of artery of the extremities; L97.409 Non-pressure chronic ulcer of unspecified heel and midfoot with unspecified severity; M86.8X7 Other osteomyelitis, ankle and foot; E44.0 Moderate protein-calorie malnutrition; E11.621 Type 2 diabetes mellitus with foot ulcer; E11.69 Type 2 diabetes mellitus with other specified complication; I25.10 Atherosclerotic heart disease of native coronary artery without angina pectoris; I25.5 Ischemic cardiomyopathy; L97.519 Non-pressure chronic ulcer of other part of right foot with unspecified severity; H60.92 Unspecified otitis externa, left ear; I99.8 Other disorder of circulatory system; D72.829 Elevated white blood cell count, unspecified; D64.9 Anemia, unspecified; I50.9 Heart failure, unspecified; I11.0 Hypertensive heart disease with heart failure; I70.209 Unspecified atherosclerosis of native arteries of extremities, unspecified extremity; E78.00 Pure hypercholesterolemia, unspecified; E78.5 Hyperlipidemia, unspecified; M16.12 Unilateral primary osteoarthritis, left hip; E11.40 Type 2 diabetes mellitus with diabetic neuropathy, unspecified; E11.610 Type 2 diabetes mellitus with diabetic neuropathic arthropathy; D47.3 Essential (hemorrhagic) thrombocythemia; Z95.5 Presence of coronary angioplasty implant and graft; Z98.62 Peripheral vascular angioplasty status; Z79.899 Other long term (current) drug therapy
CPT/HCPCS: 36415; 36573; 37228; 37230; 73630; 73721; 75635; 75710; 76937; 80048; 80061; 80202; 81003; 82607; 82962; 83036; 83540; 83550; 83735; 84443; 84484; 85027; 85651; 86140; 87070; 87077; 90715; 93005; 93923; 96365; 97022; 97116; 97162; 97164; 99285; C1725; C1760; C1769; C1874; C1887; C1893; C1894; J0696; J1644; J1650; J1815; J2250; J2543; J3010; J3370; J3490; J7040; J7060; Q9967

== ENCOUNTER 2019-10-12 14:45 | Inpatient (IN) | payer BC ==
[~2019-10-12] VITALS: Ht 177.8 cm; Wt 123.4 kg
[~2019-10-12 14:45] MED LIST changes: -AMLO2.5T45 PO; +AMLO5TAB88 MT; -ASPI-1158 MT; -CARV6.2548 PO; -COR25 PO; -FURO-152 PO; +FURO20TA4 MT; -METF-414 PO; +METF-416 MT; +OLME20TA22 MT; -OLME40TA11 PO; +POTA-79 MT; -SITA50TA3 MT
[2019-10-12] MEDS ORDERED: DILTIAZEM HCL 5MG/ML 5ML VIAL IV ONE ×2 (16:30→17:45)
[2019-10-12 16:54] LABS: BASOPHILS % 0.6 % (0.0-2.0); EOSINOPHILS % 0.7 % (0.0-5.0); HEMATOCRIT. 32.5 % (42.0-52.0); HEMOGLOBIN. 10.9 g/dL (14.0-18.0); LYMPHOCYTES % 13.6 % (20.0-50.0); MEAN CORPUSCULAR HEMOGLOBIN 29.2 pg (28.0-32.0); MEAN CORPUSCULAR VOLUME 86.8 fL (80.0-94.0); MONOCYTES % 6.4 % (2.0-8.0); NEUTROPHILS % 78.7 % (40.0-76.0); PLATELET 274 x1000/uL (130-400); RED BLOOD CELL COUNT 3.74 mill/uL (4.7-6.1); RED CELL DISTRIBUTION WIDTH 16.7 % (11.6-14.6)
[2019-10-12 16:59] LABS: CHLORIDE 107 mEq/L (98-107)
[2019-10-12 17:03] LABS: ETHANOL BLOOD < 10 mg/dL
[2019-10-12] MEDS ORDERED: FUROSEMIDE 40MG/4ML VIAL IVP ONE (17:15)
[2019-10-12] MEDS ORDERED: DEXTROSE 50% WATER 50ML SYRINGE IV PRN (17:15)
[2019-10-12] MEDS ORDERED: ASPIRIN 81MG TABLET PO ONE (17:45)
[2019-10-12] MEDS ORDERED: FUROSEMIDE 40MG/4ML VIAL IV ONE (17:45)
[2019-10-12] MEDS ORDERED: DILTIAZEM HCL 125 MG in DEXT 5% WATER 100 ML IV ONE (17:45)
[2019-10-12] MEDS ORDERED: IPRATROPIUM/ALBUTEROL 0.5-3(2.5)MG/3ML NEB NEB PRN (18:00)
[2019-10-12] MEDS ORDERED: LORAZEPAM 0.5MG TABLET PO PRN (18:00)
[2019-10-12] MEDS ORDERED: CLONIDINE 0.1MG TABLET PO PRN (18:00)
[2019-10-12] MEDS ORDERED: ONDANSETRON HCL 4MG/2ML INJ IV PRN (18:00)
[2019-10-12] MEDS ORDERED: GUAIFENESIN 200MG/10ML SUGAR FREE UDC PO PRN (18:00)
[2019-10-12] MEDS ORDERED: NITROGLYCERIN 0.4MG TABLET SL SL PRN (18:40)
[2019-10-12] MEDS ORDERED: TRAMADOL 50MG TABLET PO PRN (18:41)
[2019-10-12] MEDS ORDERED: MORPHINE SULFATE 2 MG/ML CPJ (NOT FOR IM USE) IV PRN (19:00)
[2019-10-12 20:50] LABS: *AMPHETAMINES SCREEN URINE NEGATIVE (NEGATIVE); *BARBITURATES SCREEN URINE NEGATIVE (NEGATIVE); *BENZODIAZEPINES SCREEN URINE NEGATIVE (NEGATIVE); *COCAINE SCREEN URINE NEGATIVE (NEGATIVE)
[2019-10-12 20:51] LABS: CANNABINOID URINE SCREEN NEGATIVE (NEGATIVE); METHADONE URINE SCREEN NEGATIVE (NEGATIVE); OPIATES URINE SCREEN NEGATIVE (NEGATIVE); PHENCYCLIDINE URINE SCREEN NEGATIVE (NEGATIVE)
[2019-10-12] MEDS ORDERED: ZOLPIDEM TARTRATE 5MG TABLET PO PRN (21:00)
[2019-10-12 21:50] LABS: TOTAL IRON BINDING CAPACITY 333 ug/dL (250-450)
[2019-10-12 21:54] LABS: CREATINE KINASE MB FRACTION 4.2 ng/mL (0.5-3.6)
[2019-10-12] MEDS ORDERED: DILTIAZEM HCL 60MG TABLET PO SCH (22:00)
[2019-10-12] MEDS ORDERED: ASPIRIN 81MG EC TABLET PO SCH (22:00)
[2019-10-12] MEDS: BLOOD SUGAR DIAGNOSTIC STRIP TEST SCH (22:04)
[2019-10-12 22:09] LABS: FOLIC ACID (FOLATE) SERUM 8.4 ng/mL (>5.38)
[2019-10-12] MEDS ORDERED: POTASSIUM CHLORIDE 20MEQ TABLET SR PO NR (22:30)
[2019-10-12 23:00] VITALS: BP 117/90
[2019-10-13] VITALS (10 sets, daily range): BP systolic 90–137; BP diastolic 59–90
[2019-10-13] MEDS: ENOXAPARIN 150MG/ML SYR SUBCUT SCH ×2 (00:25→10:42)
[2019-10-13] MEDS: FAMOTIDINE 20MG TABLET PO SCH ×3 (00:25→21:03)
[2019-10-13] MEDS: ASCORBIC ACID 500 MG TABLET PO SCH ×3 (00:25→21:02)
[2019-10-13] MEDS ORDERED: DILTIAZEM HCL 125 MG in DEXT 5% WATER 100 ML IV SCH (01:00)
[2019-10-13 06:30] LABS: BASOPHILS % 1.1 % (0.0-2.0); HEMOGLOBIN. 10.2 g/dL (14.0-18.0); LYMPHOCYTES % 18.2 % (20.0-50.0); MEAN CORPUSCULAR HEMOGLOBIN 29.7 pg (28.0-32.0); MEAN PLATELET VOLUME 9.2 fl (7.4-10.4); MONOCYTES % 6.8 % (2.0-8.0); NEUTROPHILS % 71.9 % (40.0-76.0); PLATELET 259 x1000/uL (130-400); RED BLOOD CELL COUNT 3.45 mill/uL (4.7-6.1); RED CELL DISTRIBUTION WIDTH 16.8 % (11.6-14.6)
[2019-10-13] MEDS: BLOOD SUGAR DIAGNOSTIC STRIP TEST SCH ×4 (06:31→22:42)
[2019-10-13 06:37] LABS: INR 1.2
[2019-10-13 06:44] LABS: CHLORIDE 107 mEq/L (98-107)
[2019-10-13 06:57] LABS: LDL CHOLESTEROL 112 mg/dL (5-100)
[2019-10-13 06:58] LABS: CREATINE KINASE 281 IU/L (39-308)
[2019-10-13 07:01] LABS: PHOSPHORUS 3.7 mg/dL (2.5-4.9)
[2019-10-13 07:03] LABS: HDL CHOLESTEROL 26 mg/dL (40-59)
[2019-10-13] MEDS: INSULIN LISPRO 100 UNITS/ML SUBCUT SCH ×5 (08:00→22:50)
[2019-10-13] MEDS: ZINC SULFATE 220 MG ( 50 ) CAPSULE PO SCH (08:17)
[2019-10-13] MEDS ORDERED: CLOPIDOGREL 75MG TABLET PO SCH (09:00)
[2019-10-13] MEDS ORDERED: ASPIRIN 81MG EC TABLET PO SCH (09:00)
[2019-10-13] MEDS: DILTIAZEM HCL 60MG TABLET PO SCH ×3 (12:19→23:03)
[2019-10-13] MEDS ORDERED: DILTIAZEM HCL 5MG/ML 5ML VIAL IV NR ×2 (13:30)
[2019-10-13] MEDS ORDERED: DILTIAZEM HCL 125 MG in DEXT 5% WATER 100 ML IV PRN (13:30)
[2019-10-13] MEDS: FUROSEMIDE 40MG TABLET PO SCH (14:08)
[2019-10-13] MEDS ORDERED: CLOPIDOGREL 75MG TABLET PO NR (15:00)
[2019-10-13] MEDS: ASPIRIN 81MG EC TABLET PO SCH (15:00)
[2019-10-13] MEDS: ENOXAPARIN 120MG/0.8ML SYR SUBCUT SCH (22:54)
[2019-10-14] VITALS (10 sets, daily range): BP systolic 111–143; BP diastolic 65–88
[2019-10-14] MEDS: DILTIAZEM HCL 60MG TABLET PO SCH ×4 (06:46→23:48)
[2019-10-14] MEDS: BLOOD SUGAR DIAGNOSTIC STRIP TEST SCH ×4 (06:51→20:56)
[2019-10-14] MEDS: INSULIN LISPRO 100 UNITS/ML SUBCUT SCH ×4 (07:49→21:01)
[2019-10-14] MEDS: ZINC SULFATE 220 MG ( 50 ) CAPSULE PO SCH (08:37)
[2019-10-14] MEDS: FUROSEMIDE 40MG TABLET PO SCH (08:37)
[2019-10-14] MEDS: ASCORBIC ACID 500 MG TABLET PO SCH ×2 (08:38→20:57)
[2019-10-14] MEDS: FAMOTIDINE 20MG TABLET PO SCH ×2 (08:38→20:56)
[2019-10-14] MEDS: CLOPIDOGREL 75MG TABLET PO SCH (08:43)
[2019-10-14] MEDS: ENOXAPARIN 120MG/0.8ML SYR SUBCUT SCH ×2 (10:50→20:56)
[2019-10-14] MEDS: MAGNESIUM/ALUMINUM HYDROXIDE/SIMETHICONE 30ML UDC PO PRN (16:48)
[2019-10-15] VITALS (10 sets, daily range): BP systolic 116–145; BP diastolic 63–94
[2019-10-15] MEDS: DILTIAZEM HCL 60MG TABLET PO SCH ×4 (05:45→23:36)
[2019-10-15] MEDS: BLOOD SUGAR DIAGNOSTIC STRIP TEST SCH ×4 (07:30→21:16)
[2019-10-15] MEDS: INSULIN LISPRO 100 UNITS/ML SUBCUT SCH ×4 (08:00→21:29)
[2019-10-15] MEDS: FAMOTIDINE 20MG TABLET PO SCH ×2 (09:32→21:29)
[2019-10-15] MEDS: ASPIRIN 81MG EC TABLET PO SCH (09:32)
[2019-10-15] MEDS: ZINC SULFATE 220 MG ( 50 ) CAPSULE PO SCH (09:32)
[2019-10-15] MEDS: ENOXAPARIN 120MG/0.8ML SYR SUBCUT SCH ×2 (09:32→21:29)
[2019-10-15] MEDS: FUROSEMIDE 40MG TABLET PO SCH (09:32)
[2019-10-15] MEDS: ASCORBIC ACID 500 MG TABLET PO SCH ×2 (09:32→21:29)
[2019-10-15] MEDS: CLOPIDOGREL 75MG TABLET PO SCH (09:38)
[2019-10-15] MEDS: MAGNESIUM/ALUMINUM HYDROXIDE/SIMETHICONE 30ML UDC PO PRN (21:35)
[2019-10-15] MEDS: DOCUSATE SODIUM 100MG CAPSULE PO PRN (21:35)
[2019-10-15] MEDS: DILTIAZEM HCL 125 MG in DEXT 5% WATER 100 ML IV PRN (22:48)
[2019-10-16] VITALS (11 sets, daily range): BP systolic 110–163; BP diastolic 70–92
[2019-10-16] MEDS: DILTIAZEM HCL 60MG TABLET PO SCH ×3 (05:14→18:02)
[2019-10-16] MEDS: BLOOD SUGAR DIAGNOSTIC STRIP TEST SCH ×4 (07:37→20:47)
[2019-10-16] MEDS: INSULIN LISPRO 100 UNITS/ML SUBCUT SCH ×4 (08:00→20:58)
[2019-10-16] MEDS: FAMOTIDINE 20MG TABLET PO SCH ×2 (08:29→20:58)
[2019-10-16] MEDS: FUROSEMIDE 40MG TABLET PO SCH (08:29)
[2019-10-16] MEDS: CLOPIDOGREL 75MG TABLET PO SCH (08:29)
[2019-10-16] MEDS: ZINC SULFATE 220 MG ( 50 ) CAPSULE PO SCH (08:29)
[2019-10-16] MEDS: ASCORBIC ACID 500 MG TABLET PO SCH ×2 (08:29→20:58)
[2019-10-16] MEDS: DILTIAZEM HCL 125 MG in DEXT 5% WATER 100 ML IV PRN (08:57)
[2019-10-16] MEDS: MAGNESIUM/ALUMINUM HYDROXIDE/SIMETHICONE 30ML UDC PO PRN (10:58)
[2019-10-16] MEDS: ENOXAPARIN 120MG/0.8ML SYR SUBCUT SCH ×2 (10:59→21:05)
[2019-10-16] MEDS ORDERED: LACTULOSE 20G/30ML UDC PO PRN ×2 (13:30→21:00)
[2019-10-16] MEDS: LACTULOSE 20G/30ML UDC PO PRN (13:36)
[2019-10-16] MEDS ORDERED: DILTIAZEM HCL 60MG TABLET PO ONE (14:30)
[2019-10-16] MEDS: POTASSIUM CHLORIDE 20MEQ TABLET SR PO SCH ×2 (14:57→17:59)
[2019-10-16] MEDS: CARVEDILOL 3.125 MG TABLET PO SCH ×2 (14:57→22:00)
[2019-10-16 17:46] LABS: HEMATOCRIT. 33.3 % (42.0-52.0); HEMOGLOBIN. 10.8 g/dL (14.0-18.0); MEAN CORPUSCULAR HEMOGLOBIN 28.3 pg (28.0-32.0); MEAN CORPUSCULAR VOLUME 87.1 fL (80.0-94.0); MEAN PLATELET VOLUME 8.7 fl (7.4-10.4); PLATELET 320 x1000/uL (130-400); RED BLOOD CELL COUNT 3.83 mill/uL (4.7-6.1); RED CELL DISTRIBUTION WIDTH 17.2 % (11.6-14.6)
[2019-10-16] MEDS: FUROSEMIDE 40MG/4ML VIAL IVP SCH (17:59)
[2019-10-16] MEDS: ACETAMINOPHEN 325MG TABLET PO PRN (17:59)
[2019-10-16 18:05] LABS: PLATELET ESTIMATE NORMAL
[2019-10-17] VITALS (10 sets, daily range): BP systolic 100–171; BP diastolic 52–94
[2019-10-17] MEDS: ACETAMINOPHEN 325MG TABLET PO PRN ×2 (01:03→11:49)
[2019-10-17] MEDS: DILTIAZEM HCL 125 MG in DEXT 5% WATER 100 ML IV PRN ×2 (03:48→21:40)
[2019-10-17 05:40] LABS: EOSINOPHILS % 0.4 % (0.0-5.0); HEMOGLOBIN. 10.5 g/dL (14.0-18.0); LYMPHOCYTES % 12.6 % (20.0-50.0); MEAN CORPUSCULAR HEMOGLOBIN 29.1 pg (28.0-32.0); MEAN CORPUSCULAR VOLUME 85.8 fL (80.0-94.0); MEAN PLATELET VOLUME 9.1 fl (7.4-10.4); PLATELET 266 x1000/uL (130-400); RED BLOOD CELL COUNT 3.61 mill/uL (4.7-6.1); RED CELL DISTRIBUTION WIDTH 16.7 % (11.6-14.6)
[2019-10-17] MEDS: DILTIAZEM HCL 60MG TABLET PO SCH ×2 (05:52)
[2019-10-17] MEDS: CARVEDILOL 3.125 MG TABLET PO SCH ×2 (05:53→20:58)
[2019-10-17] MEDS: BLOOD SUGAR DIAGNOSTIC STRIP TEST SCH ×4 (07:30→20:59)
[2019-10-17] MEDS: INSULIN LISPRO 100 UNITS/ML SUBCUT SCH ×4 (08:00→21:04)
[2019-10-17] MEDS: ZINC SULFATE 220 MG ( 50 ) CAPSULE PO SCH (08:47)
[2019-10-17] MEDS: FUROSEMIDE 40MG/4ML VIAL IVP SCH (08:47)
[2019-10-17] MEDS: FAMOTIDINE 20MG TABLET PO SCH ×2 (08:47→20:59)
[2019-10-17] MEDS: ASPIRIN 81MG EC TABLET PO SCH (08:48)
[2019-10-17] MEDS: POTASSIUM CHLORIDE 20MEQ TABLET SR PO SCH ×2 (08:48→17:19)
[2019-10-17] MEDS: ASCORBIC ACID 500 MG TABLET PO SCH ×2 (08:48→20:58)
[2019-10-17] MEDS: CLOPIDOGREL 75MG TABLET PO SCH (08:52)
[2019-10-17] MEDS ORDERED: CARVEDILOL 3.125 MG TABLET PO SCH (11:05)
[2019-10-17] MEDS: ENOXAPARIN 120MG/0.8ML SYR SUBCUT SCH ×2 (11:09→21:41)
[2019-10-17] MEDS: DILTIAZEM HCL 90MG TABLET PO SCH ×2 (11:50→17:19)
[2019-10-17] MEDS: SODIUM CHLORIDE 0.45% 1,000 ML IV SCH (16:00)
[2019-10-17 17:17] LABS: CLARITY URINE CLEAR (CLEAR); COLOR URINE YELLOW (YELLOW); KETONES URINE NEGATIVE (NEGATIVE); LEUKOCYTE ESTERASE URINE NEGATIVE (NEGATIVE); NITRITE URINE NEGATIVE (NEGATIVE); OCCULT BLOOD URINE NEGATIVE (NEGATIVE); PROTEIN URINE NEGATIVE (NEGATIVE); SPECIFIC GRAVITY URINE 1.013 (1.005-1.030); UROBILINOGEN URINE 0.2 E.U./dL (0.2-1.0)
[2019-10-17 18:45] LABS: CREATINE KINASE 388 IU/L (39-308)
[2019-10-18] VITALS (17 sets, daily range): BP systolic 89–142; BP diastolic 42–88
[2019-10-18] MEDS: ACETAMINOPHEN 325MG TABLET PO PRN (00:45)
[2019-10-18] MEDS: DILTIAZEM HCL 90MG TABLET PO SCH ×4 (02:04→18:05)
[2019-10-18 05:09] LABS: BASOPHILS % 1.1 % (0.0-2.0); EOSINOPHILS % 0.2 % (0.0-5.0); HEMATOCRIT. 34.2 % (42.0-52.0); HEMOGLOBIN. 11.3 g/dL (14.0-18.0); LYMPHOCYTES % 17.6 % (20.0-50.0); MEAN CORPUSCULAR HEMOGLOBIN 28.7 pg (28.0-32.0); MEAN CORPUSCULAR VOLUME 86.8 fL (80.0-94.0); MEAN PLATELET VOLUME 9.1 fl (7.4-10.4); MONOCYTES % 13.4 % (2.0-8.0); NEUTROPHILS % 67.7 % (40.0-76.0); PLATELET 277 x1000/uL (130-400); RED BLOOD CELL COUNT 3.94 mill/uL (4.7-6.1); RED CELL DISTRIBUTION WIDTH 17.2 % (11.6-14.6)
[2019-10-18] MEDS: BLOOD SUGAR DIAGNOSTIC STRIP TEST SCH ×4 (06:33→20:24)
[2019-10-18] MEDS: POTASSIUM CHLORIDE 20MEQ TABLET SR PO SCH ×2 (09:08→18:05)
[2019-10-18] MEDS: FAMOTIDINE 20MG TABLET PO SCH ×2 (09:08→21:05)
[2019-10-18] MEDS: ZINC SULFATE 220 MG ( 50 ) CAPSULE PO SCH (09:08)
[2019-10-18] MEDS: ASCORBIC ACID 500 MG TABLET PO SCH ×2 (09:08→21:01)
[2019-10-18] MEDS: CLOPIDOGREL 75MG TABLET PO SCH (09:08)
[2019-10-18] MEDS: CARVEDILOL 3.125 MG TABLET PO SCH (09:09)
[2019-10-18] MEDS: ENOXAPARIN 120MG/0.8ML SYR SUBCUT SCH ×2 (09:11→21:00)
[2019-10-18] MEDS: INSULIN LISPRO 100 UNITS/ML SUBCUT SCH ×4 (09:11→21:01)
[2019-10-18] MEDS ORDERED: CARVEDILOL 6.25 MG TABLET PO NR (14:15)
[2019-10-18] MEDS: DOCUSATE SODIUM 100MG CAPSULE PO PRN (14:19)
[2019-10-18] MEDS: MAGNESIUM/ALUMINUM HYDROXIDE/SIMETHICONE 30ML UDC PO PRN (14:19)
[2019-10-18] MEDS: LACTULOSE 20G/30ML UDC PO PRN (14:20)
[2019-10-18] MEDS: SODIUM CHLORIDE 0.45% 1,000 ML IV SCH (14:21)
[2019-10-18] MEDS ORDERED: DIATR MEGLU/DIATRIZOATE SOLN 30ML PO SCH (14:30)
[2019-10-18] MEDS: VANCOMYCIN 1250MG in DEXTROSE 5% WATER 250ML IV SCH (18:05)
[2019-10-18] MEDS: CEFTAZIDIME PENTAHYDRATE 2 G in DEXT 5% WATER 100 ML IV SCH (18:05)
[2019-10-18] MEDS: ATORVASTATIN CALCIUM 20MG TABLET PO SCH (21:01)
[2019-10-18] MEDS: CARVEDILOL 12.5MG TABLET PO SCH (21:05)
[2019-10-18] MEDS ORDERED: NA PHOS,M-B/NA PHOS,DI-BA ENEMA 118ML PR NR (22:15)
[2019-10-19] VITALS (11 sets, daily range): BP systolic 93–138; BP diastolic 55–89
[2019-10-19] MEDS: CEFTAZIDIME PENTAHYDRATE 2 G in DEXT 5% WATER 100 ML IV SCH ×2 (04:24→15:36)
[2019-10-19] MEDS: SODIUM CHLORIDE 0.45% 1,000 ML IV SCH (04:33)
[2019-10-19] MEDS: DILTIAZEM HCL 90MG TABLET PO SCH ×2 (05:26)
[2019-10-19] MEDS: BLOOD SUGAR DIAGNOSTIC STRIP TEST SCH ×4 (07:58→20:44)
[2019-10-19] MEDS ORDERED: DIATR MEGLU/DIATRIZOATE SOLN 30ML PO NR (08:15)
[2019-10-19] MEDS ORDERED: BARIUM SULFATE 450ML ORAL SUSP PO SCH (09:00)
[2019-10-19] MEDS: ASCORBIC ACID 500 MG TABLET PO SCH ×2 (09:20→21:39)
[2019-10-19] MEDS: ASPIRIN 81MG EC TABLET PO SCH (09:20)
[2019-10-19] MEDS: POTASSIUM CHLORIDE 20MEQ TABLET SR PO SCH ×2 (09:20→18:13)
[2019-10-19] MEDS: ZINC SULFATE 220 MG ( 50 ) CAPSULE PO SCH (09:21)
[2019-10-19] MEDS: FAMOTIDINE 20MG TABLET PO SCH ×2 (09:21→23:40)
[2019-10-19] MEDS: CARVEDILOL 12.5MG TABLET PO SCH ×2 (09:21→21:40)
[2019-10-19] MEDS: INSULIN LISPRO 100 UNITS/ML SUBCUT SCH ×4 (09:29→21:38)
[2019-10-19] MEDS: CLOPIDOGREL 75MG TABLET PO SCH (09:34)
[2019-10-19] MEDS: ENOXAPARIN 120MG/0.8ML SYR SUBCUT SCH ×2 (09:34→21:40)
[2019-10-19] MEDS ORDERED: DILTIAZEM HCL 30MG TABLET PO NR (09:45)
[2019-10-19] MEDS: VANCOMYCIN 1250MG in DEXTROSE 5% WATER 250ML IV SCH (10:12)
[2019-10-19] MEDS: DILTIAZEM HCL 60MG TABLET PO SCH ×3 (12:58→23:39)
[2019-10-19] MEDS: LACTULOSE 20G/30ML UDC PO SCH ×2 (13:01→21:40)
[2019-10-19] MEDS: ATORVASTATIN CALCIUM 20MG TABLET PO SCH (21:39)
[2019-10-20] VITALS (8 sets, daily range): BP systolic 106–145; BP diastolic 65–95
[2019-10-20] MEDS: CEFTAZIDIME PENTAHYDRATE 2 G in DEXT 5% WATER 100 ML IV SCH ×2 (04:11→17:05)
[2019-10-20] MEDS: VANCOMYCIN 1250MG in DEXTROSE 5% WATER 250ML IV SCH (05:54)
[2019-10-20] MEDS: LACTULOSE 20G/30ML UDC PO SCH ×3 (05:55→22:19)
[2019-10-20] MEDS: DILTIAZEM HCL 60MG TABLET PO SCH ×3 (05:56→17:05)
[2019-10-20 07:24] LABS: BASOPHILS % 0.6 % (0.0-2.0); EOSINOPHILS % 0.1 % (0.0-5.0); HEMOGLOBIN. 11.3 g/dL (14.0-18.0); LYMPHOCYTES % 11.9 % (20.0-50.0); MEAN CORPUSCULAR HEMOGLOBIN 28.8 pg (28.0-32.0); MEAN CORPUSCULAR VOLUME 86.8 fL (80.0-94.0); MEAN PLATELET VOLUME 8.9 fl (7.4-10.4); MONOCYTES % 8.4 % (2.0-8.0); PLATELET 269 x1000/uL (130-400); RED BLOOD CELL COUNT 3.92 mill/uL (4.7-6.1); RED CELL DISTRIBUTION WIDTH 16.7 % (11.6-14.6)
[2019-10-20] MEDS: BLOOD SUGAR DIAGNOSTIC STRIP TEST SCH ×4 (07:30→21:00)
[2019-10-20] MEDS: INSULIN LISPRO 100 UNITS/ML SUBCUT SCH ×4 (08:32→22:20)
[2019-10-20] MEDS: FAMOTIDINE 20MG TABLET PO SCH ×2 (08:33→22:18)
[2019-10-20] MEDS: ASCORBIC ACID 500 MG TABLET PO SCH ×2 (08:33→22:18)
[2019-10-20] MEDS: ZINC SULFATE 220 MG ( 50 ) CAPSULE PO SCH (08:33)
[2019-10-20] MEDS: POTASSIUM CHLORIDE 20MEQ TABLET SR PO SCH ×2 (08:33→17:05)
[2019-10-20] MEDS: CLOPIDOGREL 75MG TABLET PO SCH (08:33)
[2019-10-20] MEDS: CARVEDILOL 12.5MG TABLET PO SCH ×2 (08:34→22:18)
[2019-10-20] MEDS: ENOXAPARIN 120MG/0.8ML SYR SUBCUT SCH ×2 (08:34→22:46)
[2019-10-20] MEDS: ACETAMINOPHEN 325MG TABLET PO PRN (17:06)
[2019-10-20] MEDS: ATORVASTATIN CALCIUM 20MG TABLET PO SCH (21:00)
[2019-10-20] MEDS: VANCOMYCIN 1500MG in DEXTROSE 5% WATER 250ML IV SCH (22:18)
[2019-10-21] VITALS (12 sets, daily range): BP systolic 68–139; BP diastolic 56–99
[2019-10-21] MEDS: DILTIAZEM HCL 60MG TABLET PO SCH ×5 (01:18→23:23)
[2019-10-21] MEDS: CEFTAZIDIME PENTAHYDRATE 2 G in DEXT 5% WATER 100 ML IV SCH ×2 (04:29→18:02)
[2019-10-21] MEDS: LACTULOSE 20G/30ML UDC PO SCH ×3 (06:22→21:05)
[2019-10-21] MEDS: BLOOD SUGAR DIAGNOSTIC STRIP TEST SCH ×4 (07:40→21:07)
[2019-10-21 08:04] LABS: BASOPHILS % 0.6 % (0.0-2.0); EOSINOPHILS % 0.2 % (0.0-5.0); HEMATOCRIT. 33.3 % (42.0-52.0); HEMOGLOBIN. 11.1 g/dL (14.0-18.0); LYMPHOCYTES % 17.5 % (20.0-50.0); MEAN CORPUSCULAR HEMOGLOBIN 28.6 pg (28.0-32.0); MEAN CORPUSCULAR VOLUME 85.4 fL (80.0-94.0); MEAN PLATELET VOLUME 8.8 fl (7.4-10.4); MONOCYTES % 10.1 % (2.0-8.0); NEUTROPHILS % 71.6 % (40.0-76.0); PLATELET 241 x1000/uL (130-400); RED BLOOD CELL COUNT 3.89 mill/uL (4.7-6.1); RED CELL DISTRIBUTION WIDTH 16.9 % (11.6-14.6)
[2019-10-21] MEDS: INSULIN LISPRO 100 UNITS/ML SUBCUT SCH ×4 (08:33→21:07)
[2019-10-21 09:23] LABS: CHLORIDE 105 mEq/L (98-107)
[2019-10-21 09:36] LABS: CREATINE KINASE 378 IU/L (39-308)
[2019-10-21] MEDS: FAMOTIDINE 20MG TABLET PO SCH ×2 (10:21→21:05)
[2019-10-21] MEDS: CLOPIDOGREL 75MG TABLET PO SCH (10:21)
[2019-10-21] MEDS: ASCORBIC ACID 500 MG TABLET PO SCH ×2 (10:21→21:05)
[2019-10-21] MEDS: ASPIRIN 81MG EC TABLET PO SCH (10:21)
[2019-10-21] MEDS: ZINC SULFATE 220 MG ( 50 ) CAPSULE PO SCH (10:21)
[2019-10-21] MEDS: POTASSIUM CHLORIDE 20MEQ TABLET SR PO SCH ×2 (10:21→18:00)
[2019-10-21] MEDS: CARVEDILOL 12.5MG TABLET PO SCH ×2 (10:22→21:05)
[2019-10-21] MEDS: ENOXAPARIN 120MG/0.8ML SYR SUBCUT SCH ×2 (10:28→21:07)
[2019-10-21] MEDS: VANCOMYCIN 1500MG in DEXTROSE 5% WATER 250ML IV SCH (15:32)
[2019-10-21] MEDS: ATORVASTATIN CALCIUM 20MG TABLET PO SCH (21:05)
[2019-10-22] VITALS (11 sets, daily range): BP systolic 92–137; BP diastolic 65–84
[2019-10-22] MEDS: CEFTAZIDIME PENTAHYDRATE 2 G in DEXT 5% WATER 100 ML IV SCH ×2 (04:32→16:00)
[2019-10-22] MEDS: LACTULOSE 20G/30ML UDC PO SCH ×3 (05:23→20:39)
[2019-10-22] MEDS: DILTIAZEM HCL 60MG TABLET PO SCH ×3 (05:23→18:34)
[2019-10-22] MEDS: BLOOD SUGAR DIAGNOSTIC STRIP TEST SCH ×4 (07:54→20:47)
[2019-10-22 08:06] LABS: BASOPHILS % 0.5 % (0.0-2.0); EOSINOPHILS % 0.4 % (0.0-5.0); HEMATOCRIT. 35.3 % (42.0-52.0); HEMOGLOBIN. 11.4 g/dL (14.0-18.0); MEAN CORPUSCULAR HEMOGLOBIN 27.9 pg (28.0-32.0); MEAN CORPUSCULAR VOLUME 86.1 fL (80.0-94.0); MEAN PLATELET VOLUME 8.8 fl (7.4-10.4); MONOCYTES % 8.9 % (2.0-8.0); NEUTROPHILS % 71.2 % (40.0-76.0); PLATELET 235 x1000/uL (130-400); RED CELL DISTRIBUTION WIDTH 16.6 % (11.6-14.6)
[2019-10-22 08:29] LABS: CHLORIDE 108 mEq/L (98-107)
[2019-10-22 08:44] LABS: CREATINE KINASE 316 IU/L (39-308)
[2019-10-22] MEDS: CLOPIDOGREL 75MG TABLET PO SCH (08:44)
[2019-10-22] MEDS: INSULIN LISPRO 100 UNITS/ML SUBCUT SCH ×4 (08:44→20:46)
[2019-10-22] MEDS: ZINC SULFATE 220 MG ( 50 ) CAPSULE PO SCH (08:45)
[2019-10-22] MEDS: ASCORBIC ACID 500 MG TABLET PO SCH ×2 (08:45→20:43)
[2019-10-22] MEDS: CARVEDILOL 12.5MG TABLET PO SCH ×2 (08:45→20:43)
[2019-10-22] MEDS: POTASSIUM CHLORIDE 20MEQ TABLET SR PO SCH ×2 (08:45→17:46)
[2019-10-22] MEDS: FAMOTIDINE 20MG TABLET PO SCH ×2 (09:48→20:39)
[2019-10-22] MEDS: VANCOMYCIN 1500MG in DEXTROSE 5% WATER 250ML IV SCH (09:48)
[2019-10-22] MEDS: ENOXAPARIN 120MG/0.8ML SYR SUBCUT SCH ×2 (11:09→20:44)
[2019-10-22] MEDS ORDERED: FUROSEMIDE 40MG/4ML VIAL IVP SCH (15:00)
[2019-10-22] MEDS: ATORVASTATIN CALCIUM 20MG TABLET PO SCH (20:43)
[2019-10-23] VITALS (8 sets, daily range): BP systolic 97–138; BP diastolic 64–109
[2019-10-23] MEDS: DILTIAZEM HCL 60MG TABLET PO SCH ×3 (00:23→11:49)
[2019-10-23] MEDS: CEFTAZIDIME PENTAHYDRATE 2 G in DEXT 5% WATER 100 ML IV SCH (03:16)
[2019-10-23] MEDS: VANCOMYCIN 1500MG in DEXTROSE 5% WATER 250ML IV SCH (03:21)
[2019-10-23] MEDS: LACTULOSE 20G/30ML UDC PO SCH ×2 (06:00→11:49)
[2019-10-23] MEDS ORDERED: FUROSEMIDE 40MG TABLET PO SCH (06:00)
[2019-10-23 06:01] LABS: BASOPHILS % 0.6 % (0.0-2.0); EOSINOPHILS % 1.6 % (0.0-5.0); HEMATOCRIT. 35.4 % (42.0-52.0); HEMOGLOBIN. 11.7 g/dL (14.0-18.0); LYMPHOCYTES % 30.6 % (20.0-50.0); MEAN CORPUSCULAR HEMOGLOBIN 28.3 pg (28.0-32.0); MEAN CORPUSCULAR VOLUME 85.9 fL (80.0-94.0); MEAN PLATELET VOLUME 9.1 fl (7.4-10.4); MONOCYTES % 8.8 % (2.0-8.0); NEUTROPHILS % 58.4 % (40.0-76.0); PLATELET 251 x1000/uL (130-400); RED BLOOD CELL COUNT 4.12 mill/uL (4.7-6.1)
[2019-10-23 06:16] LABS: CHLORIDE 107 mEq/L (98-107)
[2019-10-23 06:27] LABS: CREATINE KINASE 265 IU/L (39-308)
[2019-10-23] MEDS: BLOOD SUGAR DIAGNOSTIC STRIP TEST SCH ×2 (07:30→11:49)
[2019-10-23] MEDS: FAMOTIDINE 20MG TABLET PO SCH (08:39)
[2019-10-23] MEDS: ZINC SULFATE 220 MG ( 50 ) CAPSULE PO SCH (08:40)
[2019-10-23] MEDS: ASPIRIN 81MG EC TABLET PO SCH (08:40)
[2019-10-23] MEDS: ASCORBIC ACID 500 MG TABLET PO SCH (08:40)
[2019-10-23] MEDS: POTASSIUM CHLORIDE 20MEQ TABLET SR PO SCH (08:40)
[2019-10-23] MEDS: CLOPIDOGREL 75MG TABLET PO SCH (08:40)
[2019-10-23] MEDS: INSULIN LISPRO 100 UNITS/ML SUBCUT SCH ×2 (08:41→11:48)
[2019-10-23] MEDS: ENOXAPARIN 120MG/0.8ML SYR SUBCUT SCH (08:41)
[2019-10-23] MEDS: CARVEDILOL 12.5MG TABLET PO SCH (08:43)
[2019-10-23] MEDS: DOCUSATE SODIUM 100MG CAPSULE PO PRN (11:50)
[2019-10-23] MEDS ORDERED: DILT360C27 MT (15:28)
[2019-10-23] MEDS ORDERED: APIX5TAB MT (15:29)
== END 2019-10-23 17:46 | disposition home or self-care (01) | DRG 683 ==
LOC: ER 14:45 → 5EST 17:42 → EDBEDREQSVC 17:45 → EDBEDREQTM 17:45 → EDBEDREQ 17:45 → ENRESERV 20:46
PROVIDERS: ADMIT Internal Medicine; ATTEND Internal Medicine
DX: N17.9 Acute kidney failure, unspecified (principal); I48.92 Unspecified atrial flutter; E44.0 Moderate protein-calorie malnutrition; I13.0 Hypertensive heart and chronic kidney disease with heart failure and stage 1 through stage 4 chronic kidney disease, or unspecified chronic kidney disease; M86.8X7 Other osteomyelitis, ankle and foot; I42.9 Cardiomyopathy, unspecified; D63.8 Anemia in other chronic diseases classified elsewhere; E11.621 Type 2 diabetes mellitus with foot ulcer; L97.519 Non-pressure chronic ulcer of other part of right foot with unspecified severity; E78.5 Hyperlipidemia, unspecified; E11.22 Type 2 diabetes mellitus with diabetic chronic kidney disease; H70.92 Unspecified mastoiditis, left ear; N18.9 Chronic kidney disease, unspecified; I25.10 Atherosclerotic heart disease of native coronary artery without angina pectoris; E11.69 Type 2 diabetes mellitus with other specified complication; E66.01 Morbid (severe) obesity due to excess calories; E11.51 Type 2 diabetes mellitus with diabetic peripheral angiopathy without gangrene; E78.00 Pure hypercholesterolemia, unspecified; I34.0 Nonrheumatic mitral (valve) insufficiency; I50.9 Heart failure, unspecified; E11.610 Type 2 diabetes mellitus with diabetic neuropathic arthropathy; M47.816 Spondylosis without myelopathy or radiculopathy, lumbar region; M16.12 Unilateral primary osteoarthritis, left hip; K56.41 Fecal impaction; Z79.02 Long term (current) use of antithrombotics/antiplatelets; Z95.5 Presence of coronary angioplasty implant and graft; Z71.3 Dietary counseling and surveillance; Z79.899 Other long term (current) drug therapy; Z79.01 Long term (current) use of anticoagulants; Z79.82 Long term (current) use of aspirin; Z98.62 Peripheral vascular angioplasty status; Z68.39 Body mass index [BMI] 39.0-39.9, adult; Z79.4 Long term (current) use of insulin
CPT/HCPCS: 36415; 70551; 71045; 73721; 74018; 74176; 76770; 80048; 80053; 80061; 80076; 80202; 80305; 80320; 81003; 82550; 82553; 82607; 82746; 82962; 83036; 83540; 83550; 83735; 83880; 84100; 84443; 84484; 85025; 85651; 86140; 87070; 87077; 87186; 93005; 93306; 93970; 96374; 99291; J0713; J1650; J1815; J1940; J3370; J3490; J7040; J7060; Q9963; G0480

== ENCOUNTER 2021-05-20 16:45 | Emergency (ER) | payer BC, MEDICAID ==
[~2021-05-20] VITALS: Ht 177.8 cm; Wt 117.0 kg
[~2021-05-20 16:45] MED LIST changes: -AMLO5TAB88 MT; +APIX5TAB MT; +DILT360C27 MT; -FURO20TA4 MT; -OLME20TA22 MT; -POTA-79 MT
[2021-05-20 17:09] VITALS: BP 168/104
== END 2021-05-20 22:59 | disposition left against medical advice (07) ==
LOC: ER 16:45
DX: M79.606 Pain in leg, unspecified (principal); Z53.21 Procedure and treatment not carried out due to patient leaving prior to being seen by health care provider
CPT/HCPCS: 82962

== ENCOUNTER 2025-09-19 14:39 | Inpatient (IN) | payer BC, OTHER ==
[~2025-09-19] VITALS: Ht 177.8 cm; Wt 124.7 kg
[~2025-09-19 14:39] MED LIST changes: +CLOP-31 MT; -CLOP75TA4 MT
[2025-09-19 15:00] VITALS: O2SAT 99
[2025-09-19 17:25] LABS: BASOPHILS % 1.4 % (0.0-2.0); EOSINOPHILS % 0.8 % (0.0-5.0); HEMATOCRIT. 33.0 % (42.0-52.0); HEMOGLOBIN. 10.6 g/dL (14.0-18.0); LYMPHOCYTES % 16.7 % (20.0-50.0); MEAN PLATELET VOLUME 9.7 fl (7.4-10.4); MONOCYTES % 8.7 % (2.0-8.0); NEUTROPHILS % 72.4 % (40.0-76.0); PLATELET 236 x1000/uL (130-400); RED BLOOD CELL COUNT 3.58 mill/uL (4.7-6.1); RED CELL DISTRIBUTION WIDTH 19.1 % (11.6-14.6)
[2025-09-19 17:38] LABS: CREATININE 1.5 mg/dL (0.6-1.3); PROTEIN TOTAL 6.1 g/dL (6.0-8.3); UREA NITROGEN BLOOD 21 mg/dL (9-23)
[2025-09-19 17:39] LABS: INR 1.5; TROPONIN I HIGH SENSITIVITY 32 ng/L (3.0-53)
[2025-09-19 17:40] LABS: ASPARTATE AMINOTRANSFERASE 21 IU/L (<34); BILIRUBIN DIRECT 0.4 mg/dL (<=3.0); BILIRUBIN TOTAL 0.9 mg/dL (0.1-1.0)
[2025-09-19] MEDS ORDERED: GUAIFENESIN 200MG/10ML SUGAR FREE UDC PO PRN (20:30)
[2025-09-19] MEDS ORDERED: ACETAMINOPHEN 325MG TABLET PO PRN ×2 (20:30)
[2025-09-19] MEDS ORDERED: ONDANSETRON HCL 4MG/2ML INJ IV PRN (20:30)
[2025-09-19] MEDS ORDERED: CLONIDINE 0.1MG TABLET PO PRN (20:30)
[2025-09-19] MEDS ORDERED: IPRATROPIUM/ALBUTEROL 0.5-3(2.5)MG/3ML NEB HHN PRN (20:30)
[2025-09-19] MEDS ORDERED: DOCUSATE SODIUM 100MG CAPSULE PO PRN (20:30)
[2025-09-19] MEDS ORDERED: MAGNESIUM/ALUMINUM HYDROXIDE/SIMETHICONE 30ML UDC PO PRN (20:30)
[2025-09-19] MEDS ORDERED: DEXTROSE 50% WATER 50ML SYRINGE IV PRN (20:45)
[2025-09-19 21:00] VITALS: BP 112/81; PULSE 95; RESP 18; TEMP 36.8; TEMP 36.8072; O2SAT 99
[2025-09-19] MEDS: METOPROLOL TARTRATE 25MG TABLET PO SCH (21:00)
[2025-09-19] MEDS: BLOOD SUGAR DIAGNOSTIC STRIP TEST SCH (21:43)
[2025-09-19] MEDS: SACUBITRIL/VALSARTAN 24MG/26MG TABLET PO SCH (22:24)
[2025-09-19] MEDS: ATORVASTATIN CALCIUM 40MG TABLET PO SCH (22:24)
[2025-09-19] MEDS: APIXABAN 5 MG TABLET PO SCH (22:24)
[2025-09-19] MEDS: INSULIN LISPRO 100 UNITS/ML SUBCUT SCH (22:26)
[2025-09-20] VITALS (7 sets, daily range): BP systolic 100–137; BP diastolic 68–79; PULSE 78–96; RESP 18–20; TEMP 35.6–36.2; O2SAT 96–100
[2025-09-20] MEDS ORDERED: CARV25TA47 PO (02:52)
[2025-09-20] MEDS ORDERED: FURO40TA5 PO (02:52)
[2025-09-20] MEDS ORDERED: METO25TA6 PO (02:52)
[2025-09-20] MEDS ORDERED: DAPA10TA PO (02:54)
[2025-09-20] MEDS ORDERED: SACU1TAB PO (02:54)
[2025-09-20] MEDS ORDERED: SITA25TA3 PO (02:55)
[2025-09-20] MEDS ORDERED: EZET-55 MT (02:56)
[2025-09-20] MEDS ORDERED: ATOR-388 PO (02:56)
[2025-09-20 03:04] LABS: TROPONIN I HIGH SENSITIVITY 29 ng/L (3.0-53)
[2025-09-20 03:06] LABS: CREATINE KINASE MB FRACTION 2.6 ng/mL (0.5-3.6)
[2025-09-20 03:10] LABS: FOLIC ACID (FOLATE) SERUM 14.60 ng/mL (>5.38); VITAMIN B12 SERUM 747 pg/mL (211-911)
[2025-09-20] MEDS: FUROSEMIDE 40MG/4ML VIAL IV SCH (06:59)
[2025-09-20 07:16] LABS: BASOPHILS % 1.1 % (0.0-2.0); EOSINOPHILS % 1.9 % (0.0-5.0); HEMATOCRIT. 35.2 % (42.0-52.0); HEMOGLOBIN. 11.3 g/dL (14.0-18.0); LYMPHOCYTES % 17.6 % (20.0-50.0); MEAN PLATELET VOLUME 10.0 fl (7.4-10.4); MONOCYTES % 11.0 % (2.0-8.0); NEUTROPHILS % 68.4 % (40.0-76.0); PLATELET 233 x1000/uL (130-400); RED BLOOD CELL COUNT 3.80 mill/uL (4.7-6.1); RED CELL DISTRIBUTION WIDTH 19.4 % (11.6-14.6)
[2025-09-20 07:18] LABS: CREATINE KINASE MB FRACTION 2.7 ng/mL (0.5-3.6)
[2025-09-20 07:52] LABS: CREATININE 1.4 mg/dL (0.6-1.3)
[2025-09-20 07:53] LABS: TRIGLYCERIDE 57 mg/dL (0-150); TROPONIN I HIGH SENSITIVITY 28 ng/L (3.0-53); UREA NITROGEN BLOOD 25 mg/dL (9-23)
[2025-09-20 07:54] LABS: LDL CHOLESTEROL 38 mg/dL (5-100); PROTEIN TOTAL 5.6 g/dL (6.0-8.3)
[2025-09-20 07:55] LABS: ASPARTATE AMINOTRANSFERASE 20 IU/L (<34); BILIRUBIN DIRECT 0.4 mg/dL (<=3.0); BILIRUBIN TOTAL 0.7 mg/dL (0.1-1.0); PHOSPHORUS 3.5 mg/dL (2.5-4.9)
[2025-09-20 07:57] LABS: T4 FREE 1.83 ng/dL (0.89-1.76)
[2025-09-20] MEDS: PANTOPRAZOLE SODIUM 40 MG/VIAL IV SCH (09:37)
[2025-09-20] MEDS: MULTIVITAMINS,THER W-MINERALS TABLET PO SCH (09:37)
[2025-09-20] MEDS: CLOPIDOGREL 75MG TABLET PO SCH (09:38)
[2025-09-20] MEDS: EMPAGLIFLOZIN 10MG TABLET PO SCH (11:28)
[2025-09-20] MEDS: SPIRONOLACTONE 25MG TABLET PO SCH (11:29)
[2025-09-20] MEDS: FUROSEMIDE 100MG/10ML VIAL IVP SCH (18:04)
[2025-09-20] MEDS: CARVEDILOL 3.125 MG TABLET PO SCH (21:00)
[2025-09-21] VITALS: BP 118/71; PULSE 106; RESP 19; TEMP 36; O2SAT 100
[2025-09-21 04:00] VITALS: BP 114/87; PULSE 98; RESP 19; TEMP 37; O2SAT 100
[2025-09-21 08:27] VITALS: BP 144/87; PULSE 83; RESP 19; TEMP 35.9; O2SAT 98
[2025-09-21 12:09] VITALS: BP 107/81; PULSE 78; RESP 20; TEMP 36.1; O2SAT 96
[2025-09-21 16:17] VITALS: BP 130/84; PULSE 91; RESP 18; TEMP 35.7; O2SAT 99
[2025-09-21 18:20] LABS: BASOPHILS % 1.1 % (0.0-2.0); EOSINOPHILS % 1.4 % (0.0-5.0); HEMATOCRIT. 35.2 % (42.0-52.0); HEMOGLOBIN. 11.2 g/dL (14.0-18.0); LYMPHOCYTES % 16.1 % (20.0-50.0); MEAN PLATELET VOLUME 9.6 fl (7.4-10.4); MONOCYTES % 10.7 % (2.0-8.0); NEUTROPHILS % 70.7 % (40.0-76.0); PLATELET 247 x1000/uL (130-400); RED BLOOD CELL COUNT 3.81 mill/uL (4.7-6.1); RED CELL DISTRIBUTION WIDTH 19.1 % (11.6-14.6)
[2025-09-21 18:33] LABS: CREATININE 1.4 mg/dL (0.6-1.3)
[2025-09-21 18:34] LABS: UREA NITROGEN BLOOD 22 mg/dL (9-23)
[2025-09-21 20:00] VITALS: BP 119/75; PULSE 83; RESP 20; TEMP 36.4; O2SAT 98
[2025-09-22] VITALS: BP 122/84; PULSE 80; RESP 18; TEMP 36.8; O2SAT 99
[2025-09-22 04:00] VITALS: BP 113/78; PULSE 81; RESP 20; TEMP 36.3; O2SAT 98
[2025-09-22 08:00] VITALS: BP 119/78; PULSE 76; RESP 16; TEMP 36.8; O2SAT 96
[2025-09-22] MEDS: ENOXAPARIN 100MG/ML SYR SUBCUT SCH (09:15)
[2025-09-22 10:40] LABS: BASOPHILS % 0.9 % (0.0-2.0); EOSINOPHILS % 1.8 % (0.0-5.0); HEMATOCRIT. 34.5 % (42.0-52.0); HEMOGLOBIN. 11.1 g/dL (14.0-18.0); LYMPHOCYTES % 13.7 % (20.0-50.0); MEAN PLATELET VOLUME 9.8 fl (7.4-10.4); MONOCYTES % 9.2 % (2.0-8.0); NEUTROPHILS % 74.4 % (40.0-76.0); PLATELET 273 x1000/uL (130-400); RED BLOOD CELL COUNT 3.74 mill/uL (4.7-6.1); RED CELL DISTRIBUTION WIDTH 19.0 % (11.6-14.6)
[2025-09-22 11:06] LABS: CREATININE 1.5 mg/dL (0.6-1.3); UREA NITROGEN BLOOD 18.0 mg/dL (9-23)
[2025-09-22 12:00] VITALS: BP 109/68; PULSE 88; RESP 16; TEMP 36.8; O2SAT 97
[2025-09-22 16:00] VITALS: BP 119/58; PULSE 92; RESP 16; TEMP 36.6; O2SAT 95
[2025-09-22 20:00] VITALS: BP 105/78; PULSE 106; RESP 20; TEMP 36.3; O2SAT 99
[2025-09-23] VITALS: BP_SYST 129; BP_SYST 140; BP_DIAS 74; BP_DIAS 96; PULSE 93; PULSE 95; RESP 18; RESP 20; TEMP 36.2; TEMP 36.6; O2SAT 99
[2025-09-23 04:00] VITALS: BP 140/96; PULSE 93; RESP 20; TEMP 36.2; O2SAT 99
[2025-09-23 06:35] LABS: BASOPHILS % 1.2 % (0.0-2.0); EOSINOPHILS % 1.6 % (0.0-5.0); HEMATOCRIT. 36.5 % (42.0-52.0); HEMOGLOBIN. 11.6 g/dL (14.0-18.0); LYMPHOCYTES % 14.1 % (20.0-50.0); MEAN PLATELET VOLUME 9.6 fl (7.4-10.4); MONOCYTES % 12.0 % (2.0-8.0); NEUTROPHILS % 71.1 % (40.0-76.0); PLATELET 243 x1000/uL (130-400); RED BLOOD CELL COUNT 3.94 mill/uL (4.7-6.1); RED CELL DISTRIBUTION WIDTH 18.6 % (11.6-14.6)
[2025-09-23 07:03] LABS: CREATININE 1.3 mg/dL (0.6-1.3); UREA NITROGEN BLOOD 19 mg/dL (9-23)
[2025-09-23 08:00] VITALS: BP 127/92; PULSE 97; RESP 19; TEMP 36.6; O2SAT 100
[2025-09-23 12:00] VITALS: BP 125/84; PULSE 100; RESP 19; TEMP 36.9; O2SAT 99
[2025-09-23 16:00] VITALS: BP 98/67; PULSE 100; RESP 19; TEMP 36.6; O2SAT 96
[2025-09-23 20:00] VITALS: BP 122/76; PULSE 100; RESP 18; TEMP 36.3; O2SAT 100
[2025-09-24] VITALS: BP 121/74; PULSE 93; RESP 18; TEMP 36.3; O2SAT 100
[2025-09-24 04:00] VITALS: BP 102/62; PULSE 96; RESP 18; TEMP 36.4; O2SAT 99
[2025-09-24 06:22] LABS: BASOPHILS % 1.1 % (0.0-2.0); EOSINOPHILS % 0.8 % (0.0-5.0); HEMATOCRIT. 32.3 % (42.0-52.0); HEMOGLOBIN. 10.6 g/dL (14.0-18.0); LYMPHOCYTES % 17.4 % (20.0-50.0); MEAN PLATELET VOLUME 9.9 fl (7.4-10.4); MONOCYTES % 8.1 % (2.0-8.0); NEUTROPHILS % 72.6 % (40.0-76.0); PLATELET 253 x1000/uL (130-400); RED BLOOD CELL COUNT 3.55 mill/uL (4.7-6.1); RED CELL DISTRIBUTION WIDTH 19.4 % (11.6-14.6)
[2025-09-24 06:34] LABS: CREATININE 1.4 mg/dL (0.6-1.3)
[2025-09-24 06:35] LABS: UREA NITROGEN BLOOD 20 mg/dL (9-23)
[2025-09-24 08:23] VITALS: BP 120/85; PULSE 103; RESP 18; TEMP 36; O2SAT 98
[2025-09-24] MEDS: POTASSIUM CHLORIDE 20MEQ/PACKET PO NR (10:53)
[2025-09-24 11:43] VITALS: BP 119/72; PULSE 104; RESP 18; TEMP 36.1; O2SAT 98
[2025-09-24] MEDS ORDERED: IODIXANOL 320 MG/ML 150ML BOTTLE IV ONE (12:24)
[2025-09-24] MEDS ORDERED: ASPIRIN/SOD BICARB/CITRIC ACID 324MG TAB EFF ONE (12:24)
[2025-09-24] MEDS ORDERED: LIDOCAINE HCL 1% 20ML VIAL ONE (12:24)
[2025-09-24] MEDS ORDERED: HEPARIN 1000 UNITS/ML 10ML ONE (12:24)
[2025-09-24] MEDS ORDERED: IODIXANOL 320MG/ML 100 ML BOTTLE IV ONE (12:36)
[2025-09-24] MEDS ORDERED: MIDAZOLAM HCL 2 MG/2 ML VIAL ONE (13:02)
[2025-09-24] MEDS ORDERED: FENTANYL CITRATE/PF 50MCG/ML 2ML VIAL ONE (13:02)
[2025-09-24] MEDS ORDERED: ACETAMINOPHEN 325MG TABLET PO PRN (13:45)
[2025-09-24] MEDS: SODIUM CHLORIDE 0.45% 1,000 ML IV ONE (13:45)
[2025-09-24] MEDS ORDERED: ONDANSETRON HCL 4MG/2ML INJ IV PRN (13:45)
[2025-09-24] MEDS ORDERED: MORPHINE SULFATE 2 MG/ML INJ (NOT FOR IM USE) IV PRN ×2 (13:45)
[2025-09-24] MEDS ORDERED: ATROPINE SULFATE 1MG/10ML SYR IV PRN (13:45)
[2025-09-24] MEDS ORDERED: NALOXONE HCL 0.4MG/ML VIAL IV PRN (13:45)
[2025-09-24 16:23] VITALS: BP 118/68; PULSE 112; RESP 20; TEMP 35.7; O2SAT 98
[2025-09-24 20:00] VITALS: BP 109/67; PULSE 108; RESP 18; TEMP 36.7; O2SAT 100
[2025-09-24] MEDS: CARVEDILOL 6.25 MG TABLET PO SCH (21:00)
[2025-09-24] MEDS: APIXABAN 5 MG TABLET PO SCH (21:13)
[2025-09-25] VITALS: BP 99/66; PULSE 97; RESP 20; TEMP 37; O2SAT 98
[2025-09-25 04:00] VITALS: BP 121/68; PULSE 114; RESP 18; TEMP 36.5; O2SAT 99
[2025-09-25 06:25] LABS: CREATININE 1.4 mg/dL (0.6-1.3)
[2025-09-25 06:26] LABS: UREA NITROGEN BLOOD 22 mg/dL (9-23)
[2025-09-25 06:35] LABS: BASOPHILS % 1.0 % (0.0-2.0); EOSINOPHILS % 1.2 % (0.0-5.0); HEMATOCRIT. 32.8 % (42.0-52.0); HEMOGLOBIN. 10.5 g/dL (14.0-18.0); LYMPHOCYTES % 15.9 % (20.0-50.0); MEAN PLATELET VOLUME 9.8 fl (7.4-10.4); MONOCYTES % 13.3 % (2.0-8.0); NEUTROPHILS % 68.6 % (40.0-76.0); PLATELET 210 x1000/uL (130-400); RED BLOOD CELL COUNT 3.55 mill/uL (4.7-6.1); RED CELL DISTRIBUTION WIDTH 19.2 % (11.6-14.6)
[2025-09-25] MEDS ORDERED: SPIR25TA PO (09:33)
[2025-09-25] MEDS ORDERED: COR6 PO (09:33)
[2025-09-25 12:00] VITALS: BP 116/80; PULSE 105; RESP 17; TEMP 36.2; O2SAT 100
[2025-09-25] MEDS: POTASSIUM CHLORIDE 20MEQ/PACKET PO SCH (14:06)
[2025-09-25 16:15] VITALS: BP 108/70; PULSE 111; RESP 18; TEMP 35.7; O2SAT 92
[2025-09-25] MEDS: METOLAZONE 2.5MG TABLET PO SCH (18:01)
[2025-09-25 20:00] VITALS: BP 117/70; RESP 16; TEMP 36.6; O2SAT 98
[2025-09-26] VITALS: BP 118/80; PULSE 87; RESP 16; TEMP 37; O2SAT 98
[2025-09-26 04:00] VITALS: BP 104/70; RESP 14; TEMP 37; O2SAT 98
[2025-09-26 06:39] LABS: BASOPHILS % 1.0 % (0.0-2.0); EOSINOPHILS % 1.1 % (0.0-5.0); HEMATOCRIT. 35.9 % (42.0-52.0); HEMOGLOBIN. 11.3 g/dL (14.0-18.0); LYMPHOCYTES % 17.3 % (20.0-50.0); MEAN PLATELET VOLUME 10.4 fl (7.4-10.4); MONOCYTES % 11.8 % (2.0-8.0); NEUTROPHILS % 68.8 % (40.0-76.0); PLATELET 219 x1000/uL (130-400); RED BLOOD CELL COUNT 3.84 mill/uL (4.7-6.1); RED CELL DISTRIBUTION WIDTH 18.9 % (11.6-14.6)
[2025-09-26 07:09] LABS: CREATININE 1.6 mg/dL (0.6-1.3); UREA NITROGEN BLOOD 24.0 mg/dL (9-23)
[2025-09-26 15:38] VITALS: BP 118/82; PULSE 104; RESP 18; TEMP 97.1
== END 2025-09-26 17:50 | disposition home or self-care (01) | DRG 292 ==
LOC: ER 14:39 → EDBEDREQ 15:48 → EDBEDREQTM 17:52 → EDBEDREQ 17:52 → 7WST 19:50
PROVIDERS: ADMIT Internal Medicine; ATTEND Internal Medicine
DX: I13.0 Hypertensive heart and chronic kidney disease with heart failure and stage 1 through stage 4 chronic kidney disease, or unspecified chronic kidney disease (principal); I48.92 Unspecified atrial flutter; Z79.01 Long term (current) use of anticoagulants; D64.9 Anemia, unspecified; E11.22 Type 2 diabetes mellitus with diabetic chronic kidney disease; E11.51 Type 2 diabetes mellitus with diabetic peripheral angiopathy without gangrene; E66.9 Obesity, unspecified; Z79.02 Long term (current) use of antithrombotics/antiplatelets; I70.209 Unspecified atherosclerosis of native arteries of extremities, unspecified extremity; N18.9 Chronic kidney disease, unspecified; I50.9 Heart failure, unspecified; E78.5 Hyperlipidemia, unspecified; I25.10 Atherosclerotic heart disease of native coronary artery without angina pectoris; I25.5 Ischemic cardiomyopathy; I48.91 Unspecified atrial fibrillation; Z96.642 Presence of left artificial hip joint; Z55.6 Problems related to health literacy; Z79.4 Long term (current) use of insulin; Z79.84 Long term (current) use of oral hypoglycemic drugs; Z79.899 Other long term (current) drug therapy; Z89.512 Acquired absence of left leg below knee; Z95.5 Presence of coronary angioplasty implant and graft; Z95.810 Presence of automatic (implantable) cardiac defibrillator; Z68.39 Body mass index [BMI] 39.0-39.9, adult
CPT/HCPCS: 36415; 71045; 80048; 80061; 80076; 82550; 82553; 82607; 82728; 82746; 82962; 83036; 83540; 83550; 83735; 83880; 84100; 84439; 84443; 84484; 85025; 85044; 93005; 93458; 97163; 97166; 99291; A4606; A4615; C1769; C1887; C1893; J1644; J1650; J1815; J1938; J2003; J2250; J2470; J3010; Q9967